=== PATIENT | male | born 1960 | race Caucasian/White ===

== ENCOUNTER 2017-11-20 15:14 | Emergency (ER) | payer MEDICAID, SELFPAY ==
[2017-11-20 15:14] VITALS: BP 162/87; PULSE 103; RESP 14; TEMP 36.4; O2SAT 99; BMI 20.2
--- NOTE | 2017-11-20 15:40 | RAD_ITS ---
STUDY: X-RAY - LEFT HAND REASON FOR EXAM: Male, 57 years old. Pain at level of fourth and fifth metacarpals following an injury. TECHNIQUE: 3 view(s) of the hand. COMPARISON: None. FINDINGS: Normal radiocarpal articulation. Normal distal radioulnar joint. Normal visualized carpal bones. Normal carpal articulations Normal carpometacarpal articulation of the thumb. Normal second through fifth carpometacarpal joints. Nondisplaced transverse fracture along the distal portion of the fifth metacarpal with mild dorsal angulation suggesting a boxer type fracture. Normal metacarpophalangeal joint of the thumb. Normal interphalangeal joint of the thumb. Normal proximal and distal phalanges of the thumb. Normal metacarpophalangeal joints of the second through fifth fingers. Normal proximal and distal interphalangeal joints of the second through fifth fingers. Normal phalanges of the second through fifth fingers. Soft tissue swelling. RAD/Hand Min 3 Views IMPRESSION: Nondisplaced fracture along the distal portion of the fifth metacarpal with mild dorsal regulation and soft tissue swelling. This is suggestively boxer type fracture. Electronically Signed: Rd Hunt MD at 16:01 EDT Tel [phone], Service support ,
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
[2017-11-20] MEDS: HYDROcodone Bitartrate/Apap 5/325 Tablet PO (15:51)
--- NOTE | 2017-11-20 15:55 | ED.DEP ---
ED Disposition - Plan for ED Patient: Disposition: Home or Assisted Living Chief Complaint: Upper Extremity Injury Instructions: ED Fx Hand Closed Prescriptions: Hydrocodone/Acetaminophen [[place] 7.5-325 Tablet] 1 ea PO Q4H PRN PRN #14 tab PRN Reason: Pain Referrals: Dayanara Tesfaye DO [STAFF PHYSICIAN] - As soon as possible Additional Instructions: Ice and elevate left hand. Motrin and limited [place] for pain. Clinically this is either an acute fracture of the left small metacarpal or an old healed fracture. There is no old films available for comparison. We will treat as a fracture and please follow-up with orthopedic physician Dr. Tesfaye.
--- NOTE | 2017-11-20 15:59 | DCINST.ED_ITS ---
ED Disposition - Plan for ED Patient: Disposition: Home or Assisted Living Chief Complaint: Upper Extremity Injury Instructions: ED Fx Hand Closed Prescriptions: Hydrocodone/Acetaminophen [[facility] 7.5-325 Tablet] 1 ea PO Q4H PRN PRN #14 tab PRN Reason: Pain Referrals: Dayanara Tesfaye DO [STAFF PHYSICIAN] - As soon as possible Additional Instructions: Ice and elevate left hand. Motrin and limited [facility] for pain. Clinically this is either an acute fracture of the left small metacarpal or an old healed fracture. There is no old films available for comparison. We will treat as a fracture and please follow-up with orthopedic physician Dr. Tesfaye.
== END 2017-11-20 16:18 | disposition home or self-care (01) ==
PROVIDERS: Emergency Provider Emergency Medicine; Family Provider Internal Medicine; PCP Internal Medicine
DX: S62.307A Unspecified fracture of fifth metacarpal bone, left hand, initial encounter for closed fracture (principal); W23.0XXA Caught, crushed, jammed, or pinched between moving objects, initial encounter; Y93.E6 Activity, residential relocation; Y92.9 Unspecified place or not applicable; Y99.9 Unspecified external cause status; F41.9 Anxiety disorder, unspecified; F17.200 Nicotine dependence, unspecified, uncomplicated
CPT/HCPCS: 29125; 73130; 99283

== ENCOUNTER 2020-03-03 12:19 | Emergency (ER) | payer MEDICAID, SELFPAY ==
[2020-03-03] VITALS (8 sets, daily range): BP systolic 111–130; BP diastolic 59–79; PULSE 61–88; RESP 12–18; TEMP 36.8; O2SAT 94–99; BMI 20.2
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
--- NOTE | 2020-03-03 12:35 | EKG12_ITS ---
Test Reason : WEAKNESS Blood Pressure : / mmHG Vent. Rate : 077 BPM Atrial Rate : 077 BPM P-R Int : 170 ms QRS Dur : 148 ms QT Int : 438 ms P-R-T Axes : 079 069 044 degrees QTc Int : 495 ms Normal sinus rhythm Right bundle branch block Abnormal ECG Confirmed by ROMA ALBA, ZITA ([id number]), purchasing expeditor YRN BAHENA ([id number]) on 03/09/2020 8:48:03 AM Referred By: LUKE Confirmed By:ZITA BRANDON MD
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
[2020-03-03] MEDS: 0.9% Normal Saline 1,000 ML 1000 ML IV (12:43)
[2020-03-03] MEDS: Naloxone 2 MG/2 ML Syringe 1 MG IV (12:43)
[2020-03-03 12:44] LABS: Absolute Lymphocyte Count 4.89 X10^3/uL (0.83-4.51); Absolute Neutrophil Count 3.9 X10^3/uL (2.0-7.7); Basophil# 0.08 X10^3/uL; Basophil% 0.8 % (0-1); Eosinophil# 0.35 X10^3/uL; Eosinophils% 3.5 % (0-5); Hematocrit 40.3 % (40-54); Hemoglobin 13.6 g/dL (13.0-16.5); Lymphocyte # 4.89 X10^3/ul (4.0); Lymphocyte % 48.8 % (19-41); Mean Corp Hgb Conc 33.7 g/dL (32-36); Mean Corpuscular Hgb 33.3 pg (27.0-32.0); Mean Corpuscular Volume 98.8 fL (80-94); Mean Platelet Vol. 9.4 fl (6.2-12.0); Monocyte# 0.75 X10^3/uL; Monocyte% 7.5 % (0-10); NRBC Flagged by Analyzer 0 % (0-5); Neutrophil # 3.92 X10^3/uL (2.7-7.7); Neutrophil % 39.1 % (47-70); Platelet Count 354 K/mm3 (150-450); RBC Distribution Width CV 13.1 % (11.6-14.6); Red Blood Count 4.08 M/mm3 (4.6-6.2)
--- NOTE | 2020-03-03 12:45 | RAD_ITS ---
STUDY: X-RAY CHEST REASON FOR EXAM: Male, 60 years old. Pt. Unresponsive, was brought in for general weakness and altered mental status TECHNIQUE: Single AP portable view of the chest. COMPARISON: Comparison is made with prior study dated 01/06/2017. FINDINGS: EKG electrodes are seen. Stable faint increased density in the left lung apex. There is no demonstrated pleural abnormality. Normal size heart. Normal mediastinum and teresa. Normal visualized pulmonary arteries. Normal visualized aortic arch and descending thoracic aorta. Normal visualized thoracic spine. Normal visualized ribs, clavicles, and shoulders. There is no demonstrated abnormality of the visualized soft tissue structures of the upper abdomen. RAD/Chest 1 View (Portable) IMPRESSION: Hyperinflation. Stable examination. Electronically Signed: Rd Hunt, at 13:20 EDT , Service support ,
[2020-03-03 13:00] LABS: ALB/GLOB Ratio 0.9 RATIO (0.9-2.4); AST(SGOT) 48 U/L (15-37); Alanine Aminotransfer ALT/SGPT 41 U/L (16-61); Albumin, Serum 3.7 g/dL (3.2-5.0); Alkaline Phosphatase 128 U/L (45-117); Anion Gap 5 (5-15); BUN 7 mg/dL (7-18); BUN/Creat Ratio 10.6 RATIO (10-20); Chloride 109 mmol/L (98-107); Creatinine, Serum 0.66 mg/dL (0.70-1.30); EST Glomerular Filtration Rate 132 mL/min (>60); Est Glom Filt Rate - Afr Amer 159 mL/min (>60); Estimated Creatinine Clearance 113.54 ml/min; Glucose 117 mg/dL (74-106); Potassium 3.3 mmol/L (3.5-5.1); Protein, Total 7.7 g/dL (6.4-8.2); Sodium Level 140 mmol/L (136-145)
[2020-03-03 14:53] LABS: Bacteria 0 SEEN /hpf (None Seen); Mucous, Urine 0 SEEN /hpf (<or=2+); Red Blood Cells-Urine 0 SEEN /hpf (0-5); Squamous Epithelial Cells - UA 0 SEEN /hpf (0-5); White Blood Cells 0 SEEN /hpf (0-5)
[2020-03-03 14:58] LABS: Color, Urine Yellow (Yellow); Glucose, Dipstick Normal (Normal); Ketone-Dipstick Negative (Negative); Leukocyte Esterase-Dipstick Negative /ul (Negative); Nitrite-Dipstick Negative (Negative); Occult Blood-Urine Negative /ul (Negative); Protein-Dipstick Negative (Negative); Urine Bilirubin Dipstick Negative (Negative); Urine Clarity Clear (Clear); Urine Urobilinogen Normal (Normal)
[2020-03-03 15:14] LABS: Amphetamine Urine VISTA POSITIVE (<1000 ng/mL); Barbiturate Urine VISTA NEGATIVE (< 200 ng/mL); Benzodiazepine Urine VISTA NEGATIVE (< 200 ng/mL); Cocaine Urine VISTA NEGATIVE (< 300 ng/mL); Ecstacy Urine VISTA NEGATIVE (< 500 ng/mL); Methadone Urine VISTA NEGATIVE (< 300 ng/mL); PCP Urine VISTA NEGATIVE (< 25 ng/mL); THC Urine VISTA NEGATIVE (< 50 ng/mL); Vista UDS pH Range 6
== END 2020-03-03 21:09 | disposition home or self-care (01) ==
PROVIDERS: Emergency Provider Student in an Organized Health Care Education/Training Program; PCP Internal Medicine
DX: F10.129 Alcohol abuse with intoxication, unspecified (principal); F15.10 Other stimulant abuse, uncomplicated; F17.200 Nicotine dependence, unspecified, uncomplicated
CPT/HCPCS: 71045; 80053; 80307; 80320; 81001; 85025; 93005; 96361; 96365; 96368; 96375; 99285; J7030; A4216; G0480; J3490

== ENCOUNTER 2020-03-20 16:26 | Emergency (ER) | payer MEDICAID, SELFPAY ==
[2020-03-03 12:23] VITALS: BMI 20.2
[2020-03-20 16:27] VITALS: BP 135/81; PULSE 107; RESP 18; TEMP 36.6; O2SAT 96; BMI 19.6
[2020-03-20] MEDS: HYDROcodone Bitartrate/Apap 5/325 Tablet PO (17:07)
--- NOTE | 2020-03-20 17:09 | ED.RN ---
pt c/o of lt great toe pain, i think my toe nail is too long. Denies loc when he hit his head.
--- NOTE | 2020-03-20 17:15 | RAD_ITS ---
STUDY: X-RAY - LEFT SHOULDER REASON FOR EXAM: Male, 60 years old. SHOULDER INJURY TECHNIQUE: 2 view(s) of the shoulder. COMPARISON: None. FINDINGS: Normal glenohumeral articulation. Normal acromioclavicular joint. Normal acromion. Normal humeral head and visualized proximal humerus. The soft tissue structures are unremarkable. Normal visualized pulmonary apex. RAD/Shoulder min 2 Views IMPRESSION: Normal x-ray examination of the shoulder. Electronically Signed: Enoch Britton DO at 17:34 EDT Tel [phone], Service support ,
[2020-03-20 18:27] VITALS: RESP 14
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
--- NOTE | 2020-03-20 18:31 | ED.DEP ---
ED Disposition - Plan for ED Patient: Instructions: ED Shoulder Sprain Prescriptions: Clotrimazole [Clotrimazole AF] 1 applicatio TP BID 30 Days #30 g Prescription Printed Naproxen [Naprosyn] 500 mg PO BID PRN #20 tab Prescription Printed Referrals: Rubia Coffey MD [Primary Care Provider] -
--- NOTE | 2020-03-20 18:55 | ED.RN ---
PT LT PRIOR TO SLING, PRESCRIPTIONS, AND DC PAPERS.
== END 2020-03-20 18:55 | disposition home or self-care (01) ==
PROVIDERS: Emergency Provider Emergency Medicine; PCP Internal Medicine
DX: S09.90XA Unspecified injury of head, initial encounter (principal); S43.402A Unspecified sprain of left shoulder joint, initial encounter; S90.32XA Contusion of left foot, initial encounter; B35.6 Tinea cruris; Z72.0 Tobacco use; V18.0XXA Pedal cycle driver injured in noncollision transport accident in nontraffic accident, initial encounter; Y93.55 Activity, bike riding; Y92.89 Other specified places as the place of occurrence of the external cause; Y99.8 Other external cause status
CPT/HCPCS: 73030; 99282

== ENCOUNTER 2020-03-31 14:12 | Emergency (ER) | payer MEDICAID, SELFPAY ==
[2020-03-31 14:12] VITALS: BP 125/77; PULSE 88; RESP 18; TEMP 36.4; O2SAT 96; BMI 18.8
--- NOTE | 2020-03-31 14:28 | RAD_ITS ---
STUDY: X-RAY - LEFT SHOULDER REASON FOR EXAM: Male, 60 years old. Fall, left shoulder pain TECHNIQUE: 4 view(s) of the shoulder. COMPARISON: None. FINDINGS: There is mild degenerative arthrosis of the glenohumeral articulation. Normal acromioclavicular joint. Normal acromion. Normal humeral head and visualized proximal humerus. The soft tissue structures are unremarkable. Normal visualized pulmonary apex. RAD/Shoulder min 2 Views IMPRESSION: Mild degree of arthrosis of the left shoulder. Electronically Signed: Rd Hunt, at 15:23 EDT , Service support ,
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
--- NOTE | 2020-03-31 14:45 | RAD_ITS ---
STUDY: X-RAY - PELVIS AND RIGHT HIP REASON FOR EXAM: Male, 60 years old. Fall, right hip pain TECHNIQUE: 3 views of the pelvis and hip. COMPARISON: None. FINDINGS: There is a non-specific bowel gas pattern. Normal visualized soft tissue structures. Normal bilateral iliac wings, sacroiliac joints and visualized sacrum. Normal bilateral superior and inferior pubic rami. Normal pubic symphysis. Normal bilateral ischial tuberosities. Normal visualized femoral head. Normal acetabulum. Normal hip joint. RAD/HIP, UNI W/ Pelvis 2-3 Views IMPRESSION: Normal x-ray examination of the pelvis and hip. Electronically Signed: Rd Hunt, at 15:23 EDT , Service support ,
[2020-03-31 16:14] VITALS: RESP 14
== END 2020-03-31 16:16 | disposition home or self-care (01) ==
PROVIDERS: Emergency Provider Emergency Medicine; PCP Internal Medicine
DX: S70.01XA Contusion of right hip, initial encounter (principal); S40.012A Contusion of left shoulder, initial encounter; Z72.0 Tobacco use; W10.9XXA Fall (on) (from) unspecified stairs and steps, initial encounter; Y93.01 Activity, walking, marching and hiking; Y92.009 Unspecified place in unspecified non-institutional (private) residence as the place of occurrence of the external cause; Y99.8 Other external cause status
CPT/HCPCS: 73030; 73502; 99284

== ENCOUNTER 2020-12-02 21:04 | Emergency (ER) | payer MEDICAID, SELFPAY ==
[2020-12-02 21:05] VITALS: BP 122/81; PULSE 88; PULSE 92; RESP 11; TEMP 35.6; O2SAT 98; BMI 21.0
--- NOTE | 2020-12-02 21:10 | CT_ITS ---
STUDY: CT BRAIN WITHOUT CONTRAST REASON FOR EXAM: Male, 60 years old. confusion RADIATION DOSAGE (If Supplied By Facility): CTDIvol = ( 44.99 ) mGy, DLP = ( 829.85 ) mGycm TECHNIQUE: Transaxial CT imaging of the brain was performed without administration of intravenous contrast material. Individualized dose optimization techniques were used for this CT. COMPARISON: Head CT exam of 01/27/2016 FINDINGS: Normal soft tissue structures. Normal calvarium. Normal size ventricles and extra-axial spaces for the patient''s age. Normal white matter tracts of the cerebral hemispheres. Normal basal ganglia and thalami. Normal brainstem. Normal cerebellum. There is no intracranial hemorrhage. There are no findings of an acute ischemic infarction. Mucosal thickening in the inferior frontal sinuses. Mucosal thickening in bilateral ethmoid sinuses. Minimal to mild areas of mucosal thickening in the maxillary sinuses. CT/Brain/Head without Contrast IMPRESSION: Normal unenhanced CT scan of the brain. Incidental sinus findings as stated above. Electronically Signed: Alma Becker MD at 22:01 EDT , Service support ,
--- NOTE | 2020-12-02 21:11 | EKG12_ITS ---
Test Reason : OVERDOSE Blood Pressure : / mmHG Vent. Rate : 089 BPM Atrial Rate : 089 BPM P-R Int : 178 ms QRS Dur : 144 ms QT Int : 454 ms P-R-T Axes : 072 060 029 degrees QTc Int : 552 ms Normal sinus rhythm Right bundle branch block Abnormal ECG Confirmed by RAN ALBA, VEENA ([id number]), editor in chief YRN BAHENA ([id number]) on 12/06/2020 12:26:23 PM Referred By: DONALD Confirmed By:VEENA TONG MD
[2020-12-02 21:25] LABS: Absolute Lymphocyte Count 4.43 X10^3/uL (0.83-4.51); Absolute Neutrophil Count 4.1 X10^3/uL (2.0-7.7); Basophil% 1.1 % (0-1); Eosinophils% 3.2 % (0-5); Hematocrit 43.3 % (40-54); Hemoglobin 13.6 g/dL (13.0-16.5); Lymphocyte # 4.43 X10^3/ul (0.83-4.51); Lymphocyte % 46.6 % (19-41); Mean Corp Hgb Conc 31.4 g/dL (32-36); Mean Corpuscular Hgb 32.3 pg (27.0-32.0); Mean Corpuscular Volume 102.9 fL (80-94); Mean Platelet Vol. 9.3 fl (6.2-12.0); Monocyte# 0.56 X10^3/uL; Monocyte% 5.9 % (0-10); NRBC Flagged by Analyzer 0 % (0-5); Neutrophil # 4.09 X10^3/uL (2.7-7.7); Neutrophil % 42.9 % (47-70); Platelet Count 436 K/mm3 (150-450); RBC Distribution Width CV 13.6 % (11.6-14.6); RBC Distribution Width SD 51.7 fl (35.1-43.9); Red Blood Count 4.21 M/mm3 (4.6-6.2); White Blood Count 9.5 K/mm3 (4.4-11.0)
--- NOTE | 2020-12-02 21:31 | EX.ED.DYSGE1 ---
HPI <Dr. Bin Traore MD - Last Filed: 12/02/20 23:23> History of Present Illness Chief Complaint: Overdose Informant: EMS and police/social human services assistants Limited: intoxicated Onset/Context/Timing Onset: Today Context: Sudden Onset Timing: Continuous Current Severity: Moderate Maximum Severity: Severe Narrative Narrative: The patient is a 60-year-old male no significant medical history the presents to the emergency department due to unresponsiveness. The home registered occupational therapist had called as the patient was there. On squad arrival, the patient was apneic with pinpoint pupils. He had very diminished respirations. IV was established. The patient was given a total of 12 mg of Narcan. He started to breathe on his own. He will not state if he took anything. The patient does have history of prior alcohol abuse and depression. There is no evidence of trauma. PFSH <Dr. Bin Traore MD - Last Filed: 12/02/20 23:23> [facility] Home Medications clotrimazole 1 applicatio TP BID 30 Days #30 g 03/20/20 [Rx Last Taken Unknown] naproxen 500 mg PO BID PRN #20 tab 03/20/20 [Rx Last Taken Unknown] Allergy/AdvReac Type Severity Reaction Status Date / Time Penicillins Allergy Angioedema Verified 12/03/20 04:10 Social History Smoking Status: Current every day smoker alcohol intake: current ROS <Dr. Bin Traore MD - Last Filed: 12/02/20 23:23> ROS ED Review of Systems ROS Unobtainable: due to encephalopathy EXAM <Dr. Bin Traore MD - Last Filed: 12/02/20 23:23> Physical Exam Const Vital Signs: 12/02/20 21:05 12/02/20 21:40 12/02/20 22:05 Temperature 96.1 F L Temperature Source Temporal Pulse Rate 92 93 Respiratory Rate 11 L 14 Respiratory Effort Normal Non-Labored Respiratory Pattern Normal Blood Pressure 122/81 H 130/74 H Blood Pressure Mean 94 92 Pulse Ox 98 100 Oxygen Delivery Method Room Air Room Air 12/02/20 23:00 12/03/20 00:00 12/03/20 01:10 Temperature Temperature Source Pulse Rate 88 93 89 Respiratory Rate 10 L 13 14 Respiratory Effort Respiratory Pattern Blood Pressure 125/75 H 121/63 H 137/66 H Blood Pressure Mean 91 82 89 Pulse Ox 96 96 95 Oxygen Delivery Method Room Air Room Air 12/03/20 02:08 12/03/20 03:03 12/03/20 04:09 Temperature Temperature Source Pulse Rate 77 81 80 Respiratory Rate 14 12 14 Respiratory Effort Respiratory Pattern Blood Pressure 140/67 H 125/73 H 141/79 H Blood Pressure Mean 91 90 99 Pulse Ox 96 Oxygen Delivery Method Room Air 12/03/20 05:52 Temperature 16 F L Temperature Source Pulse Rate Respiratory Rate 94 H Respiratory Effort Respiratory Pattern Blood Pressure 153/67 H Blood Pressure Mean Pulse Ox 96 Oxygen Delivery Method Positive unkempt General Appearance ED: unkempt and diaphoretic HEENT Negative for trauma or tenderness Eyes PERRL and EOMs intact bilaterally Neck no lymphadenopathy and supple Chest Wall inspection of chest normal and palpation of chest normal Resp normal respiratory effort and clear to auscultation bilaterally Cardio regular rate, regular rhythm, S1 normal heart sound and no murmurs GI normal to inspection, nondistended, normoactive bowel sounds, non-tender and non-distended Palpation: soft Back/Spine no CVA tenderness Neuro CN's II-XII intact bilaterally Sensorium / Orientation: lethargic Psych Appearance: unkempt Mood & Affect: depressed Skin no rashes or lesions noted <Dr. Naveen Joshua MD - Last Filed: 12/03/20 06:23> Physical Exam Const Vital Signs: 12/02/20 21:05 12/02/20 21:40 12/02/20 22:05 Temperature 96.1 F L Temperature Source Temporal Pulse Rate 92 93 Respiratory Rate 11 L 14 Respiratory Effort Normal Non-Labored Respiratory Pattern Normal Blood Pressure 122/81 H 130/74 H Blood Pressure Mean 94 92 Pulse Ox 98 100 Oxygen Delivery Method Room Air Room Air 12/02/20 23:00 12/03/20 00:00 12/03/20 01:10 Temperature Temperature Source Pulse Rate 88 93 89 Respiratory Rate 10 L 13 14 Respiratory Effort Respiratory Pattern Blood Pressure 125/75 H 121/63 H 137/66 H Blood Pressure Mean 91 82 89 Pulse Ox 96 96 95 Oxygen Delivery Method Room Air Room Air 12/03/20 02:08 12/03/20 03:03 12/03/20 04:09 Temperature Temperature Source Pulse Rate 77 81 80 Respiratory Rate 14 12 14 Respiratory Effort Respiratory Pattern Blood Pressure 140/67 H 125/73 H 141/79 H Blood Pressure Mean 91 90 99 Pulse Ox 96 Oxygen Delivery Method Room Air 12/03/20 05:52 Temperature 16 F L Temperature Source Pulse Rate Respiratory Rate 94 H Respiratory Effort Respiratory Pattern Blood Pressure 153/67 H Blood Pressure Mean Pulse Ox 96 Oxygen Delivery Method [facility] <Dr. Bin Traore MD - Last Filed: 12/02/20 23:23> [facility] Narrative Medical decision making narrative: Patient presents after overdose. He had already received Narcan prehospital he. He was not hypoxic or tachypneic. Metabolic work-up was pursued. Noncontrast head CT was negative for acute process. Screening labs are also unremarkable. Patient's chest x-ray does demonstrate questionable nodule which she has a history of. Patient is also intoxicated. He is now more awake and alert. He did admit to snorting something tonight. At this point, he denies being suicidal or homicidal. The plan will be to allow the patient to be more sober and will be reevaluated. I do feel that he will likely be able to be discharged. Impression 1. Alcohol intoxication 2. Opiate overdose Lab Data Attestation: I reviewed the patient's lab results. Labs: Laboratory Results - last 24 hr 12/02/20 12/02/20 12/02/20 21:15 21:15 21:15 WBC 9.5 RBC 4.21 L Hgb 13.6 Hct 43.3 MCV 102.9 H MCH 32.3 H MCHC 31.4 L RDW Std Deviation 51.7 H RDW Coeff of Kunal 13.6 Plt Count 436 MPV 9.3 Immature Gran % (Auto) 0.300 Neut % (Auto) 42.9 L Lymph % (Auto) 46.6 H [place] % (Auto) 5.9 Eos % (Auto) 3.2 Baso % (Auto) 1.1 H Absolute Neuts (auto) 4.1 Absolute Lymphs (auto) 4.43 Nucleated RBC % 0 Sodium 139 Potassium 4.0 Chloride 105 Carbon Dioxide 26.0 Anion Gap 8 BUN 10 Creatinine 1.07 Estim Creat Clear Calc 72.80 Est GFR (MDRD) Af Amer 91 Est GFR (MDRD) Non-Af 75 BUN/Creatinine Ratio 9.3 L Glucose 200 H Calcium 8.4 L Total Bilirubin 0.40 AST 43 H ALT 35 Alkaline Phosphatase 131 H Total Protein 8.3 H Albumin 3.8 Globulin 4.5 H Albumin/Globulin Ratio 0.8 L Urine Color Urine Clarity Urine pH Ur Specific [place] Urine Protein Urine Glucose (UA) Urine Ketones Urine Occult Blood Urine Nitrite Urine Bilirubin Urine Urobilinogen Ur Leukocyte Esterase Urine RBC Urine WBC Ur Squamous Epith Cells Urine Bacteria Urine Mucus Urine Opiates Screen Urine Methadone Screen Ur Barbiturates Screen Ur Phencyclidine Scrn Ur Amphetamines Screen U Methamphetamin-MDMA U Benzodiazepines Scrn Urine Cocaine Screen U Cannabinoids Screen Ur Drug Screen Comment Ethyl Alcohol 215.0 12/02/20 12/02/20 23:20 23:20 WBC RBC Hgb Hct MCV MCH MCHC RDW Std Deviation RDW Coeff of Kunal Plt Count MPV Immature Gran % (Auto) Neut % (Auto) Lymph % (Auto) [place] % (Auto) Eos % (Auto) Baso % (Auto) Absolute Neuts (auto) Absolute Lymphs (auto) Nucleated RBC % Sodium Potassium Chloride Carbon Dioxide Anion Gap BUN Creatinine Estim Creat Clear Calc Est GFR (MDRD) Af Amer Est GFR (MDRD) Non-Af BUN/Creatinine Ratio Glucose Calcium Total Bilirubin AST ALT Alkaline Phosphatase Total Protein Albumin Globulin Albumin/Globulin Ratio Urine Color Yellow Urine Clarity Clear Urine pH 6.5 Ur Specific [place] 1.015 Urine Protein 15 H Urine Glucose (UA) Normal Urine Ketones Negative Urine Occult Blood Negative Urine Nitrite Negative Urine Bilirubin Negative Urine Urobilinogen Normal Ur Leukocyte Esterase Negative Urine RBC 0 SEEN Urine WBC 0 SEEN Ur Squamous Epith Cells 0 SEEN Urine Bacteria 0 SEEN Urine Mucus 0 SEEN Urine Opiates Screen POSITIVE H Urine Methadone Screen NEGATIVE Ur Barbiturates Screen NEGATIVE Ur Phencyclidine Scrn NEGATIVE Ur Amphetamines Screen POSITIVE H U Methamphetamin-MDMA NEGATIVE U Benzodiazepines Scrn NEGATIVE Urine Cocaine Screen NEGATIVE U Cannabinoids Screen NEGATIVE Ur Drug Screen Comment Ethyl Alcohol Radiography Diagnostic Testing: Radiology Impression Brain CT 12/02/20 21:10 IMPRESSION: Normal unenhanced CT scan of the brain. Incidental sinus findings as stated above. Electronically Signed: Alma Becker MD at 22:01 EDT , Service support , Chest X-Ray 12/02/20 21:40 IMPRESSION: No acute cardiopulmonary findings or changes. Persistent rounded opacity in the left lung apex which is more obvious on the current exam due to the nonstandard projection/rotation towards the right. There may be no substantial changes. Consider nonemergent chest CT for comparison to a prior chest CT of 05/01/2013 when available. A similar lesion is described on this exam which is not currently available. Electronically Signed: Alma Becker MD at 22:07 EDT , Service support , <Dr. Naveen Joshua MD - Last Filed: 12/03/20 06:23> [facility] Narrative Medical decision making narrative: Patient was turned over to me from the afternoon physician from yesterday. Patient's been resting comfortably in emergency department overnight. Labs were basically unremarkable except alcohol level was 215 consistent with acute alcohol intoxication and it was also felt that the patient may have unintentionally overdosed on heroin. Patient is now awake and alert and has been for the last several hours. We believe he is currently homeless so we allowed him to rest in the emergency department overnight and we supervised and observed his care. He will be discharged this morning. Currently he is doing well at 6:10 in the morning. Lab Data Attestation: I reviewed the patient's lab results. Labs: Laboratory Results - last 24 hr 12/02/20 12/02/20 12/02/20 21:15 21:15 21:15 WBC 9.5 RBC 4.21 L Hgb 13.6 Hct 43.3 MCV 102.9 H MCH 32.3 H MCHC 31.4 L RDW Std Deviation 51.7 H RDW Coeff of Kunal 13.6 Plt Count 436 MPV 9.3 Immature Gran % (Auto) 0.300 Neut % (Auto) 42.9 L Lymph % (Auto) 46.6 H [place] % (Auto) 5.9 Eos % (Auto) 3.2 Baso % (Auto) 1.1 H Absolute Neuts (auto) 4.1 Absolute Lymphs (auto) 4.43 Nucleated RBC % 0 Sodium 139 Potassium 4.0 Chloride 105 Carbon Dioxide 26.0 Anion Gap 8 BUN 10 Creatinine 1.07 Estim Creat Clear Calc 72.80 Est GFR (MDRD) Af Amer 91 Est GFR (MDRD) Non-Af 75 BUN/Creatinine Ratio 9.3 L Glucose 200 H Calcium 8.4 L Total Bilirubin 0.40 AST 43 H ALT 35 Alkaline Phosphatase 131 H Total Protein 8.3 H Albumin 3.8 Globulin 4.5 H Albumin/Globulin Ratio 0.8 L Urine Color Urine Clarity Urine pH Ur Specific [place] Urine Protein Urine Glucose (UA) Urine Ketones Urine Occult Blood Urine Nitrite Urine Bilirubin Urine Urobilinogen Ur Leukocyte Esterase Urine RBC Urine WBC Ur Squamous Epith Cells Urine Bacteria Urine Mucus Urine Opiates Screen Urine Methadone Screen Ur Barbiturates Screen Ur Phencyclidine Scrn Ur Amphetamines Screen U Methamphetamin-MDMA U Benzodiazepines Scrn Urine Cocaine Screen U Cannabinoids Screen Ur Drug Screen Comment Ethyl Alcohol 215.0 12/02/20 12/02/20 23:20 23:20 WBC RBC Hgb Hct MCV MCH MCHC RDW Std Deviation RDW Coeff of Kunal Plt Count MPV Immature Gran % (Auto) Neut % (Auto) Lymph % (Auto) [place] % (Auto) Eos % (Auto) Baso % (Auto) Absolute Neuts (auto) Absolute Lymphs (auto) Nucleated RBC % Sodium Potassium Chloride Carbon Dioxide Anion Gap BUN Creatinine Estim Creat Clear Calc Est GFR (MDRD) Af Amer Est GFR (MDRD) Non-Af BUN/Creatinine Ratio Glucose Calcium Total Bilirubin AST ALT Alkaline Phosphatase Total Protein Albumin Globulin Albumin/Globulin Ratio Urine Color Yellow Urine Clarity Clear Urine pH 6.5 Ur Specific [place] 1.015 Urine Protein 15 H Urine Glucose (UA) Normal Urine Ketones Negative Urine Occult Blood Negative Urine Nitrite Negative Urine Bilirubin Negative Urine Urobilinogen Normal Ur Leukocyte Esterase Negative Urine RBC 0 SEEN Urine WBC 0 SEEN Ur Squamous Epith Cells 0 SEEN Urine Bacteria 0 SEEN Urine Mucus 0 SEEN Urine Opiates Screen POSITIVE H Urine Methadone Screen NEGATIVE Ur Barbiturates Screen NEGATIVE Ur Phencyclidine Scrn NEGATIVE Ur Amphetamines Screen POSITIVE H U Methamphetamin-MDMA NEGATIVE U Benzodiazepines Scrn NEGATIVE Urine Cocaine Screen NEGATIVE U Cannabinoids Screen NEGATIVE Ur Drug Screen Comment Ethyl Alcohol Radiography Diagnostic Testing: Radiology Impression Brain CT 12/02/20 21:10 IMPRESSION: Normal unenhanced CT scan of the brain. Incidental sinus findings as stated above. Electronically Signed: Alma Becker MD at 22:01 EDT , Service support , Chest X-Ray 12/02/20 21:40 IMPRESSION: No acute cardiopulmonary findings or changes. Persistent rounded opacity in the left lung apex which is more obvious on the current exam due to the nonstandard projection/rotation towards the right. There may be no substantial changes. Consider nonemergent chest CT for comparison to a prior chest CT of 05/01/2013 when available. A similar lesion is described on this exam which is not currently available. Electronically Signed: Alma Becker MD at 22:07 EDT , Service support , Discharge Plan Triage Chief Complaint: Overdose ED Provider: Naveen Joshua Dx/Rx/DC Orders Instructions: ED Overdose, Opiate Prescriptions: No Action naproxen 500 MG tablet 500 mg PO BID PRN Qty: 20 RF: 0 clotrimazole 30 GM cream 1 applicatio TP BID 30 Days Qty: 30 RF: 2 Primary Care Provider: Rubia Coffey Referrals: Rubia Coffey MD [Primary Care Provider] -
--- NOTE | 2020-12-02 21:40 | RAD_ITS ---
STUDY: X-RAY CHEST REASON FOR EXAM: Male, 60 years old. sob TECHNIQUE: 1 view COMPARISON: Prior chest radiograph 03/03/2020, 01/06/2017 and 01/27/2016 FINDINGS: The lung elder are expanded without new consolidation, major atelectasis or pleural effusion. There continues to be a roundish opacity in the left upper lobe that is more obvious on the current exam compared to prior exams which may be primarily due to the projection as he is rotated towards the right and the lesion is now visible not overlapped by the clavicle as on most of the prior exams. Normal size heart. Normal mediastinum and teresa. Normal visualized pulmonary arteries. Mild elongation of the thoracic aorta. Normal visualized thoracic spine. Normal visualized ribs, clavicles, and shoulders. There is no demonstrated abnormality of the visualized soft tissue structures of the upper abdomen. RAD/Chest 1 View (Portable) IMPRESSION: No acute cardiopulmonary findings or changes. Persistent rounded opacity in the left lung apex which is more obvious on the current exam due to the nonstandard projection/rotation towards the right. There may be no substantial changes. Consider nonemergent chest CT for comparison to a prior chest CT of 05/01/2013 when available. A similar lesion is described on this exam which is not currently available. Electronically Signed: Alma Becker MD at 22:07 EDT , Service support ,
[2020-12-02 21:43] LABS: ALB/GLOB Ratio 0.8 RATIO (0.9-2.4); AST(SGOT) 43 U/L (15-37); Alanine Aminotransfer ALT/SGPT 35 U/L (16-61); Albumin, Serum 3.8 g/dL (3.2-5.0); Alkaline Phosphatase 131 U/L (45-117); Anion Gap 8 (5-15); BUN 10 mg/dL (7-18); BUN/Creat Ratio 9.3 RATIO (10-20); Calcium,Total 8.4 mg/dL (8.5-10.1); Chloride 105 mmol/L (98-107); Creatinine, Serum 1.07 mg/dL (0.70-1.30); EST Glomerular Filtration Rate 75 mL/min (>60); Est Glom Filt Rate - Afr Amer 91 mL/min (>60); Globulin 4.5 g/dL (2.2-4.2); Glucose 200 mg/dL (74-106); Protein, Total 8.3 g/dL (6.4-8.2); Sodium Level 139 mmol/L (136-145)
[2020-12-02 22:05] VITALS: BP 130/74; PULSE 93; RESP 14; O2SAT 100
[2020-12-02 23:00] VITALS: BP 125/75; PULSE 88; RESP 10; O2SAT 96
[2020-12-02 23:43] LABS: Bacteria 0 SEEN /hpf (None Seen); Mucous, Urine 0 SEEN /hpf (<or=2+); Red Blood Cells-Urine 0 SEEN /hpf (0-5); Squamous Epithelial Cells - UA 0 SEEN /hpf (0-5); White Blood Cells 0 SEEN /hpf (0-5)
[2020-12-02 23:44] LABS: Color, Urine Yellow (Yellow); Glucose, Dipstick Normal (Normal); Ketone-Dipstick Negative (Negative); Leukocyte Esterase-Dipstick Negative /ul (Negative); Nitrite-Dipstick Negative (Negative); Occult Blood-Urine Negative /ul (Negative); Protein-Dipstick 15 mg/dl (Negative); Specific Gravity, Urine 1.015 (1.002-1.030); Urine Bilirubin Dipstick Negative (Negative); Urine Clarity Clear (Clear); Urine Urobilinogen Normal (Normal); Urine pH 6.5 (5.0 - 8.0)
[2020-12-03] VITALS: BP 121/63; PULSE 93; RESP 13; O2SAT 96
[2020-12-03 00:06] LABS: Amphetamine Urine VISTA POSITIVE (<1000 ng/mL); Barbiturate Urine VISTA NEGATIVE (< 200 ng/mL); Benzodiazepine Urine VISTA NEGATIVE (< 200 ng/mL); Cocaine Urine VISTA NEGATIVE (< 300 ng/mL); Ecstacy Urine VISTA NEGATIVE (< 500 ng/mL); Methadone Urine VISTA NEGATIVE (< 300 ng/mL); PCP Urine VISTA NEGATIVE (< 25 ng/mL); THC Urine VISTA NEGATIVE (< 50 ng/mL); Vista UDS pH Range 6
[2020-12-03 01:10] VITALS: BP 137/66; PULSE 89; RESP 14; O2SAT 95
[2020-12-03 02:08] VITALS: BP 140/67; PULSE 77; RESP 14; O2SAT 96
[2020-12-03 03:03] VITALS: BP 125/73; PULSE 81; RESP 12
[2020-12-03 04:09] VITALS: BP 141/79; PULSE 80; RESP 14
--- NOTE | 2020-12-03 04:54 | ED.RN ---
PT IS AWAKE, PT MADE AWARE IF HE CAN FIND A RIDE HOME HE CAN BE DISCHARGED.PT STATED HE WASS HOMELESS AND HAD NO ONE TO CALL.MD MADE AWARE.PT IS STAYING UNTIL DAYLIGHT.PT FINE WITH THAT.GAVE PT A SANDWHICH AND WATER.
[2020-12-03 05:52] VITALS: BP 153/67; RESP 94; TEMP -8.8; TEMP 16; O2SAT 96
== END 2020-12-03 06:25 | disposition home or self-care (01) ==
PROVIDERS: Emergency Medicine; Emergency Provider Emergency Medicine; PCP Internal Medicine
DX: T40.601A Poisoning by unspecified narcotics, accidental (unintentional), initial encounter (principal); F17.200 Nicotine dependence, unspecified, uncomplicated; F10.129 Alcohol abuse with intoxication, unspecified; Y90.7 Blood alcohol level of 200-239 mg/100 ml
CPT/HCPCS: 70450; 71045; 80053; 80307; 81001; 82077; 85025; 93005; 96360; 96361; 99285; A4216

== ENCOUNTER 2021-02-12 09:15 | Emergency (ER) | payer MEDICAID, SELFPAY ==
[2021-02-12 09:17] VITALS: BP 134/100; PULSE 98; RESP 14; TEMP 36.3; O2SAT 99; BMI 19.8
--- NOTE | 2021-02-12 10:07 | VDLE_ITS ---
Reason For Study: Pain Procedure LEFT This is a venous duplex using B-mode, color GSV is normal. flow and spectral Doppler. CFV is compressible, spontaneous, phasic, Exam performed portable in ED. competent, and demonstrates normal A preliminary report was called and/or faxed augmentation. to [facility]. FV is compressible, spontaneous, phasic, competent and demonstrates normal augmentation. POP V is compressible, spontaneous, phasic, competent and demonstrates normal augmentation. T/P Trunk is compressible. PTV is compressible. LT PerV is compressible. VL/Venous Duplex US, Unilateral Interpretation Summary There is no evidence of left lower extremity deep vein thrombosis. Left great s aphenous vein appears patent and compressible segmentally. Ordering Physician: Emiliano Quezada Referring Physician: Rubia Coffey Performed By: Mere Treadwell RVT
--- NOTE | 2021-02-12 10:09 | EDS_ITS ---
HPI History of Present Illness Chief Complaint: Other, Pain/Inj Narrative Narrative: 61-year-old male presenting with leg pain which he states is his entire leg starting in his gluteal region. It is circumferential as well. Patient states he was not doing anything except sweeping when it started. Patient denies any trauma. He states he has no medical problems. [facility] Medical History Alcoholism Depression Home Medications naproxen [Naprosyn] 500 mg PO BID PRN #30 tab 02/12/21 [Rx Last Taken Unknown] Allergy/AdvReac Type Severity Reaction Status Date / Time Penicillins Allergy Angioedema Verified 02/12/21 09:21 Surgical History H/O foot surgery Social History Smoking Status: Current every day smoker tobacco type: cigarettes alcohol intake: current ROS ROS ED Constitutional Constitutional ED: Denies chills, fever(s) or sweats Eyes Eyes: Denies blurry vision or change in vision ENT ENT ED: Denies rhinorrhea or sore throat Cardiovascular Cardiovascular: Denies chest pain or palpitations Respiratory/Chest Respiratory/Chest: Denies cough or dyspnea Gastrointestinal Gastrointestinal: Denies abdominal pain, nausea or vomiting Genitourinary Genitourinary ED: Denies dysuria or hematuria Musculoskeletal Musculoskeletal: Reports myalgias and other Details: Circumferential pain of the entire leg starting at the gluteal region Integumentary Denies abscess or rash Neurologic Neurologic: Denies headache(s) or paresthesias Psychiatric Psychiatric: Denies anxiety or depression EXAM Physical Exam Const Vital Signs: 02/12/21 09:17 02/12/21 11:37 Temperature 97.4 F L Temperature Source Temporal Pulse Rate 98 82 Respiratory Rate 14 16 Blood Pressure 134/100 H 143/83 H Blood Pressure Mean 111 Pulse Ox 99 100 Oxygen Delivery Method Room Air Positive cachectic and unkempt General Appearance ED: unkempt, cachectic and NAD Nutritional Appearance: cachectic HEENT Reports moist mucous membranes normocephalic and atraumatic Eyes PERRL Resp normal respiratory effort and clear to auscultation bilaterally Cardio regular rate, regular rhythm and no murmurs Back/Spine no CVA tenderness General Back: Negative for swelling Cervical Spine: Negative for cervical spine tenderness Thoracic Spine / Upper Back: Negative for thoracic spinal tenderness Lumbar Spine / Lower Back: straight leg raise positive - left at 30 degrees; Negative for lumbar spinal tenderness Extremity Extremity Narrative: Tenderness to palpation in the left gluteal region. Although patient describes pain diffusely down his left leg with distraction as I am palpating he is not experiencing acute pain to this area of either the thigh or the calf. All the compartments of the entire leg are soft. Sensation is intact. Patient is moving the extremity without difficulty although on straight leg raise test he feels pain in the gluteal region. Patient has 2+ pedal pulses in the foot. He has brisk cap refill to all 5 toes. General Extremety ED: Negative for cyanosis or edema General Extremity: Negative for cyanosis or edema Neuro oriented x3 Sensorium / Orientation: alert Psych Appearance: unkempt Attitude: agitated Speech: other Skin no wounds Lesions: no lesions Rashes: no rashes Trauma: abrasion; Negative for laceration MDM MDM MDM Narrative Medical decision making narrative: The patient presenting with left leg pain which acutely started today when he said he was sweeping. On examination he does appear to be tender in the left gluteal region traction he does not seem to be tender anywhere else. His left leg is neurovascularly intact. He has brisk lower extremity pulses on the left and brisk cap refill. All his compartments are soft. He is given morphine and Toradol for pain. I will obtain an x-ray of his hip and obtain an ultrasound of the left lower extremity. It appears that his pain likely is sciatic but I cannot explain why his entire leg would be hurting. He does not have any back pain. I did review his medical record and it appears that he was recently here on 12/02/2020 with what was likely an opioid overdose which he snorted something and required 12 mg of Narcan. It also appears that he has anxiety, depression, GERD, tobacco use, alcohol abuse, COPD. When I asked him he stated he had no medical problems and he did not drink every day. I obtained imaging of the left hip which on my interpretation shows no acute fracture or subluxation. Patient had DVT study on the left lower extremity which was also negative. On reevaluation the patient was out of pain and was sleeping. Patient was given a prescription for Naprosyn. I counseled him that since he had recently had a narcotic overdose I do not feel comfortable giving him stronger pain medications. Patient amenable to this plan. Impression: 1. Right leg pain 2. Sciatica Radiography Diagnostic Testing: Radiology Impression Hip/Pelvis X-Ray 02/12/21 10:15 IMPRESSION: Normal x-ray examination of the pelvis and hip. Electronically Signed: Anuj Naylor MD at 10:49 EDT Tel , Service support , Discharge Plan Triage Chief Complaint: Other, Pain/Inj ED Provider: Emiliano Quezada Dx/Rx/DC Orders Instructions: ED Sciatica Prescriptions: New naproxen [Naprosyn] 500 mg tablet 500 mg PO BID PRN (Reason: pain) Qty: 30 RF: 0 Primary Care Provider: Rubia Coffey Referrals: Rubia Coffey MD [Primary Care Provider] - Disposition Disposition: Home, Self Care Discharge Date/Time: 02/12/21 11:44
--- NOTE | 2021-02-12 10:15 | RAD_ITS ---
STUDY: X-RAY - PELVIS AND LEFT HIP REASON FOR EXAM: Male, 61 years old. pain TECHNIQUE: 3 views of the pelvis and hip. COMPARISON: 03/31/2020 FINDINGS: There is a non-specific bowel gas pattern. Normal visualized soft tissue structures. Normal bilateral iliac wings, sacroiliac joints and visualized sacrum. Normal bilateral superior and inferior pubic rami. Normal pubic symphysis. Normal bilateral ischial tuberosities. Normal visualized femoral head. Normal acetabulum. Normal hip joint. RAD/HIP, UNI W/ Pelvis 2-3 Views IMPRESSION: Normal x-ray examination of the pelvis and hip. Electronically Signed: Anuj Naylor MD at 10:49 EDT Tel , Service support ,
[2021-02-12] MEDS: Ketorolac 15 MG/ML Vial IM (10:24)
[2021-02-12] MEDS: Morphine 4 MG/ML Syringe IM (10:24)
[2021-02-12 11:37] VITALS: BP 143/83; PULSE 82; RESP 16; O2SAT 100
== END 2021-02-12 11:44 | disposition home or self-care (01) ==
PROVIDERS: Emergency Provider Student in an Organized Health Care Education/Training Program; PCP Internal Medicine
DX: M54.32 Sciatica, left side (principal); M79.604 Pain in right leg; F17.210 Nicotine dependence, cigarettes, uncomplicated
CPT/HCPCS: 73502; 93971; 96372; 99284

== ENCOUNTER 2022-06-03 16:16 | Emergency (ER) | payer MEDICAID, SELFPAY ==
[2022-06-03 16:17] VITALS: BP 151/81; PULSE 95; RESP 14; TEMP 36.8; O2SAT 97; BMI 20.5
== END 2022-06-03 17:40 | disposition left against medical advice (07) ==
LOC: ED 17:51
PROVIDERS: PCP Internal Medicine
DX: Z53.21 Procedure and treatment not carried out due to patient leaving prior to being seen by health care provider (principal)

== ENCOUNTER 2022-06-04 11:27 | Emergency (ER) | payer MEDICAID, SELFPAY ==
[2022-06-04 11:27] VITALS: BP 125/82; PULSE 121; RESP 18; TEMP 35.8; O2SAT 99; BMI 22.2
--- NOTE | 2022-06-04 12:34 | CT_ITS ---
STUDY: CT ORBITS WITH CONTRAST REASON FOR EXAM: Male, 62 years old. Left eye swelling /redness RADIATION DOSAGE (If Supplied By Facility): CTDIvol = ( 29.38 ) mGy, DLP = ( 400.54 ) mGycm TECHNIQUE: The patient was scanned in a multi detector CT scanner. Transaxial imaging was performed following the intravenous administration of IV 100mL Isovue-370. Sagittal and coronal images were reconstructed. Individualized dose optimization techniques were used for this CT. COMPARISON: None. FINDINGS: There is visualized peripheral enhancing appearance of the left cornea. There is visualized enhancement and thickening of the left eyelid. There is a small focus of fluid or mass within the visualized medial aspect of the left eyelid abutting the left ocular surface and an additional smaller midline cystic structure suggesting small abscesses or cystic structures within the left eyelid. There is no visualized intraocular or extraconal space fluid collections.. Normal intraconal spaces. Normal optic nerve sheath complex. Normal bilateral extraocular muscles. There is minimal inflammation of the left side lacrimal glands. Normal bilateral medial and inferior orbital claire. Normal bilateral maxillary bones. Normal bilateral frontozygomatic arches. Normal bilateral zygomatic temporal arches. There is minimal mucoid thickening of the right side frontal sinus. There is mild mucoid thickening of the ethmoid sinuses. There is a small 1 cm right-sided maxillary mucosal retention cyst. Normal sphenoid sinuses. There is mild left facial periorbital soft tissue edema. CT/Orb Sella Post Fossa Ear W/CON IMPRESSION: Left-sided blepharitis. Two small abscess or cystic structure left eye lid as detailed above. Left side conjunctivitis. Mild left preseptal/ periorbital cellulitis. Electronically Signed: Es Martinez MD at 14:18 EDT ,
[2022-06-04] MEDS: 0.9% Normal Saline 1,000 ML 999 ML IV (13:01)
[2022-06-04 13:02] LABS: Absolute Lymphocyte Count 3.12 X10^3/uL (0.83-4.51); Absolute Neutrophil Count 7.6 X10^3/uL (2.0-7.7); Basophil# 0.08 X10^3/uL; Basophil% 0.6 % (0-1); Eosinophil# 0.52 X10^3/uL; Eosinophils% 4.2 % (0-5); Hematocrit 44.4 % (40-54); Hemoglobin 15.1 g/dL (13.0-16.5); Lymphocyte # 3.12 X10^3/ul (0.83-4.51); Mean Corpuscular Hgb 32.9 pg (27.0-32.0); Mean Corpuscular Volume 96.7 fL (80-94); Mean Platelet Vol. 9.5 fl (6.2-12.0); Monocyte# 1.11 X10^3/uL; Monocyte% 8.9 % (0-10); NRBC Flagged by Analyzer 0 % (0-5); Neutrophil % 61.1 % (47-70); Platelet Count 310 K/mm3 (150-450); RBC Distribution Width CV 12.4 % (11.6-14.6); RBC Distribution Width SD 44.4 fl (35.1-43.9); Red Blood Count 4.59 M/mm3 (4.6-6.2); White Blood Count 12.5 K/mm3 (4.4-11.0)
[2022-06-04] MEDS: Tetracaine 0.5% Ophthalmic Bottle 1 DRP OPHTHALMIC (13:02)
[2022-06-04] MEDS: Fluorescein 1 MG STRIP 1 STRIP OPHTHALMIC (13:02)
[2022-06-04] MEDS: Morphine 4 MG/ML Syringe IV (13:02)
[2022-06-04 13:15] LABS: Anion Gap 7 (5-15); BUN 20 mg/dL (7-18); BUN/Creat Ratio 25.1 RATIO (10-20); Calcium,Total 8.8 mg/dL (8.5-10.1); Chloride 106 mmol/L (98-107); EST Glomerular Filtration Rate 105 mL/min (>60); Est Glom Filt Rate - Afr Amer 127 mL/min (>60); Estimated Creatinine Clearance 97.65 ml/min; Glucose 123 mg/dL (74-106); Sodium Level 139 mmol/L (136-145)
[2022-06-04 14:01] VITALS: BP 125/82; PULSE 121; RESP 18; TEMP 35.8; O2SAT 99
[2022-06-04 15:22] VITALS: PULSE 71; RESP 18; O2SAT 99
--- NOTE | 2022-06-04 15:38 | EX.ED.VIS.EY ---
HPI History of Present Illness Chief Complaint: Eye Problem Informant: patient Narrative Narrative: Patient is a 62-year-old male with history of alcohol and tobacco abuse presenting with 2 weeks of worsening left-sided eyelid redness, swelling and drainage. He is also blurry vision. He has a headache. Notes that before this started he was moving furniture and cleaning up an old barn and may be got dust in his eye. He is previously had cataract surgery and he believes it was with Dr. Muller. He tried to come to the ER last night but it was too busy so he left. Patient denies any fever or chills. No nausea or vomiting. No other complaints at this time. Has had prior bilateral cataract surgery. [facility] Medical History Alcoholism Depression Home Medications cefdinir 300 mg capsule 300 mg PO Q12H #14 caps 06/04/22 [Rx Last Taken Unknown] sulfamethoxazole 800 mg-trimethoprim 160 mg tablet (Bactrim DS) 1 tab PO BID 7 days #14 tabs 06/04/22 [Rx Last Taken Unknown] Allergy/AdvReac Type Severity Reaction Status Date / Time Penicillins Allergy Angioedema Verified 06/04/22 11:29 Surgical History H/O foot surgery Social History Smoking Status: Current every day smoker tobacco type: cigarettes alcohol intake: current ROS ROS ED Constitutional Constitutional ED: Denies chills or fever(s) Eyes Eyes: Reports blurry vision left and other Details: left eye pain, eyelid swelling ENT ENT ED: Denies rhinorrhea or sore throat Cardiovascular Cardiovascular: Denies chest pain Respiratory/Chest Respiratory/Chest: Denies cough Gastrointestinal Gastrointestinal: Denies nausea or vomiting Musculoskeletal Musculoskeletal: Denies arthralgias or myalgias Integumentary Denies rash Neurologic Neurologic: Reports headache(s); Denies weakness Psychiatric Psychiatric: Denies anxiety or depression Hematologic/Lymphatic Hematologic/Lymphatic: Denies easy bleeding or easy bruising EXAM Physical Exam Const Vital Signs: 06/04/22 11:27 06/04/22 14:01 06/04/22 15:22 Temperature 96.5 F L 96.5 F L Temperature Source Temporal Temporal Pulse Rate 121 H 121 H 71 Respiratory Rate 18 18 18 Blood Pressure 125/82 H 125/82 H Blood Pressure Mean 96 96 Pulse Ox 99 99 99 Oxygen Delivery Method Room Air Room Air Room Air Positive well nourished and well developed General Appearance ED: well developed and NAD HEENT atraumatic Nose: external nose normal Eyes Eyes Narrative: Swelling of the left eyelids with associated erythema. Purulent drainage appreciated. Conjunctival injection present. Pupils equal round reactive to light. EOMI. No proptosis appreciated. On fluorescein exam patient has no uptake. No foreign bodies appreciated. Anterior chamber is quiet on slit-lamp exam. Neck supple Resp normal respiratory effort Cardio regular rate, regular rhythm and no murmurs Extremity normal to inspection Neuro oriented x3, CN's II-XII intact bilaterally and moves all extremities Sensorium / Orientation: alert Skin no wounds MDM MDM MDM Narrative Medical decision making narrative: Patient is evaluated for worsening redness, drainage and pain of the left eye. Clinically he has conjunctivitis and preseptal cellulitis however I am concerned for possible septal cellulitis given his symptoms. Initially patient is tachycardic however this improves with IV fluids and pain control. CBC shows a mild leukocytosis of 12.5. No other acute abnormalities and his BMP is normal. CT of the orbit with IV contrast shows left-sided blepharitis. 2 small abscesses or cystic structures of the left eyelid and left-sided conjunctivitis as well as mild left preseptal/periorbital cellulitis. Case is discussed with ophthalmology on-call, Dr. Proctor, who will see the patient in office tomorrow. Patient is started on dual therapy with Bactrim and cefdinir. As this is a third-generation cephalosporin there is a low chance of cross-reactivity as he does have a penicillin allergy. Will give first dose in the ER and monitor. Patient is also started on erythromycin ointment. Patient agreeable this plan of care. Discharged home in stable condition. Lab Data Labs: Laboratory Results - last 24 hr 06/04/22 06/04/22 12:55 12:55 WBC 12.5 H RBC 4.59 L Hgb 15.1 Hct 44.4 MCV 96.7 H MCH 32.9 H MCHC 34.0 RDW Std Deviation 44.4 H RDW Coeff of Kunal 12.4 Plt Count 310 MPV 9.5 Immature Gran % (Auto) 0.200 Neut % (Auto) 61.1 Lymph % (Auto) 25.0 [place] % (Auto) 8.9 Eos % (Auto) 4.2 Baso % (Auto) 0.6 Absolute Neuts (auto) 7.6 Absolute Lymphs (auto) 3.12 Nucleated RBC % 0 Sodium 139 Potassium 4.0 Chloride 106 Carbon Dioxide 26.0 Anion Gap 7 BUN 20 H Creatinine 0.80 Estim Creat Clear Calc 97.65 Est GFR (MDRD) Af Amer 127 Est GFR (MDRD) Non-Af 105 BUN/Creatinine Ratio 25.1 H Glucose 123 H Calcium 8.8 Radiography Diagnostic Testing: Clinical Impression(s) from Imaging Studies CT Orbit Sella Inner 06/04/22 12:34 IMPRESSION: Left-sided blepharitis. Two small abscess or cystic structure left eye lid as detailed above. Left side conjunctivitis. Mild left preseptal/ periorbital cellulitis. Electronically Signed: Es Martinez MD at 14:18 EDT Reading Location ID and State: [facility] / [place] Tel , Service support , Discharge Plan Triage Chief Complaint: Eye Problem ED Provider: Renay Grover Dx/Rx/DC Orders Clinical Impression: Blepharitis of left eye, Acute conjunctivitis, left eye, Preseptal cellulitis of left eye Instructions: ED Blepharitis, ED Conjunctivitis, Bacterial, ED Periorbital Cellulitis Prescriptions: New sulfamethoxazole-trimethoprim [Bactrim DS] 800-160 mg tablet 1 tab PO BID 7 Days Qty: 14 0RF cefdinir 300 mg capsule 300 mg PO Q12H Qty: 14 0RF Primary Care Provider: Rubia Coffey Referrals: Rubia Coffey MD [Primary Care Provider] - Samm Proctor MD [Med Staff - Active Staff] - 1 Day for another exam (Call in the morning to be seen tomorrow (Sunday)) Activity Restrictions/Additional Instructions: Take the entire course of antibiotics. Use the eye ointment 4 times a day into your left eye for 7 days. Disposition Disposition: Home, Self Care Discharge Date/Time: 06/04/22 16:10
[2022-06-04] MEDS: Smz/Tmp Ds Tablet 1 TABLET PO (16:03)
[2022-06-04] MEDS: Erythromycin Base 1 OPTH.TUBE 1 APPLIC LEFT EYE (16:03)
[2022-06-04] MEDS: Cefdinir 300 MG Capsule PO (16:08)
== END 2022-06-04 16:10 | disposition home or self-care (01) ==
PROVIDERS: Emergency Provider Emergency Medicine; PCP Internal Medicine; Visit Provider Emergency Medicine
DX: L03.213 Periorbital cellulitis (principal); H01.006 Unspecified blepharitis left eye, unspecified eyelid; H10.32 Unspecified acute conjunctivitis, left eye; F17.210 Nicotine dependence, cigarettes, uncomplicated; R51.9 Headache, unspecified
CPT/HCPCS: 70481; 80048; 85025; 96361; 96374; 99284; J7030; Q9967; A4216

== ENCOUNTER 2022-09-17 05:16 | Observation (INO) | payer MEDICAID, SELFPAY ==
[2022-09-17] VITALS (12 sets, daily range): BP systolic 126–163; BP diastolic 71–99; PULSE 63–106; RESP 15–18; TEMP 36.3–37.1; O2SAT 91–96; BMI 20.2; BMI 20.1
--- NOTE | 2022-09-17 | IMM_PTH ---
PATIENT: SHANTI MOLINA LOC: [facility] U#:[id number] AGE/SX: 62/M ROOM: [facility] RE09/17/[address]: Dr. Miguel A Guevara MD : 1960 BED: 1 DIS: 09/19/2022 SPEC #: [id number] RECD: 09/19/22 13:56 STATUS: SALO REQ #: [id number] URBANO: 09/17/22 00:[address]: Polo Monte DEPT: IMMUNOHISTOCHEMISTRY RECD BY: Hilda Black ENTERED: 09/19/22 13:59 SP TYPE: IMMUNO OTHR DR: MD Dr. Juventino Seals MD Dr. Nana Yaa Koram, MD Dr. Nicholas F Kotsonis, MD Tissues: THORACIC FLUID Procedures: RCC (add) NAPSIN A (add) Stone Ret (add) CK20 (add) CK7 (add) CK8 (add) BAER-2 (add) HEP PAR (add) KI-67 (add) P53 (add) TTF1 (add) Pankeratin (initial) P40 (add) PSAP (add) S-100 (add) PHYSICIAN & [place] [id number] SPECIMEN INFORMATION: Tissue Source: Thoracentesis fluid Clinical Info: Left pleural effusion, left lung mass, COPD Specimen Number: [id number] CPT code: 11658, 38964 x14 METHODOLOGY: Deparaffinized sections of prefer/formalin-fixed tissue or PAP/DQ stained slides are incubated with monoclonal/polyclonal antibodies/oligonucleotide probes. Localization is made via biotin free immunoperoxidase method. Appropriate controls are performed and reacted as expected. Results on target cell population are indicated in the following table: RESULTS: ANTIBODY / CLONE RESULT AE1-3 (AE1/AE3/PCK26) positive CK7 (OV-TL12/30) positive CK8 (24ysrzX54) positive CK20 (KS20.8) negative BAER-2 (SP21) positive S-100 (4C4.9) negative TTF-1 (8G7G3/1) positive Napsin A (Rabbit Polyclonal) positive HepPar (OCh1E5) negative RCC (PN-15) negative PSAP (PASE/4LJ) negative CALRET (polyclonal) negative P40 (BC28) negative P53 (DO-7) positive, very low and weak (wild type) Ki-67 (30-9) positive, moderate These tests were developed and their performance characteristics determined by [facility]. They may not have been cleared or approved by the U.S. Food and Drug Administration. The FDA has determined that such clearance or approval is not necessary. The above immunohistochemical/dualISH markers are ordered by Dr. Cisneros and reviewed by the Pathologist. INTERPRETATION: Thoracentesis fluid (cell block): Malignant cells present derived from non-small cell carcinoma, favor adenocarcinoma consistent with lung primary. SJ:angelo 09/20/2022
--- NOTE | 2022-09-17 05:29 | EKG12_ITS ---
Test Reason : DYSRHYTHMIA Blood Pressure : / mmHG Vent. Rate : 100 BPM Atrial Rate : 100 BPM P-R Int : 142 ms QRS Dur : 128 ms QT Int : 366 ms P-R-T Axes : 048 051 030 degrees QTc Int : 472 ms Normal sinus rhythm Non-specific intra-ventricular conduction block Abnormal ECG Confirmed by ROMA ALBA, ZITA ([id number]), mapping editor YRN BAHENA ([id number]) on 09/18/2022 11:42:04 AM Referred By: LI Confirmed By:ZITA BRANDON MD
--- NOTE | 2022-09-17 05:35 | RAD_ITS ---
We are attempting to reach an attending provider to discuss findings. An addendum with communication details will be sent when the communication is complete. EXAM: XR CHEST, 1 VIEW CLINICAL INDICATION: cough TECHNIQUE: Frontal view of the chest. This report was created using Simplebooklet report generation technology. COMPARISON: 12/02/2020. FINDINGS: LUNGS AND PLEURAL SPACES: Very large left pleural effusion with near complete opacification of the left hemithorax. No pneumothorax. HEART: Unremarkable. Cardiac silhouette not enlarged. MEDIASTINUM: Shift of the mediastinum to the right. BONES/JOINTS: Unremarkable. SOFT TISSUES: Unremarkable. RAD/Chest 1 View (Portable) IMPRESSION: Very large left pleural effusion with shift of the mediastinum to the right. Electronically Signed: Bin Parish MD at 5:52 EST ,
[2022-09-17] MEDS: 0.9% Normal Saline 1,000 ML 1000 ML IV (05:36)
[2022-09-17] MEDS: Ketorolac 15 MG/ML Vial IV (05:36)
[2022-09-17 05:43] LABS: Absolute Lymphocyte Count 2.77 X10^3/uL (0.83-4.51); Absolute Neutrophil Count 6.8 X10^3/uL (2.0-7.7); Basophil# 0.09 X10^3/uL; Basophil% 0.8 % (0-1); Eosinophil# 0.62 X10^3/uL; Eosinophils% 5.4 % (0-5); Hematocrit 44.4 % (40-54); Lymphocyte # 2.77 X10^3/ul (0.83-4.51); Lymphocyte % 24.2 % (19-41); Mean Corp Hgb Conc 33.8 g/dL (32-36); Mean Corpuscular Hgb 31.4 pg (27.0-32.0); Mean Corpuscular Volume 93.1 fL (80-94); Mean Platelet Vol. 9.6 fl (6.2-12.0); Monocyte% 9.6 % (0-10); NRBC Flagged by Analyzer 0 % (0-5); Neutrophil # 6.84 X10^3/uL (2.7-7.7); Neutrophil % 59.7 % (47-70); Platelet Count 339 K/mm3 (150-450); RBC Distribution Width CV 12.3 % (11.6-14.6); RBC Distribution Width SD 42.6 fl (35.1-43.9); Red Blood Count 4.77 M/mm3 (4.6-6.2); White Blood Count 11.5 K/mm3 (4.4-11.0)
--- NOTE | 2022-09-17 05:52 | EX.ED.DYSGE1 ---
HPI History of Present Illness Chief Complaint: General Illness Narrative Narrative: Patient presents with generalized weakness, subjective fevers, difficulty breathing cough over the past few days. He also has generalized myalgias. He had some nausea and vomiting over the past few days. He does have a history of alcohol abuse, he tells me he has drank a few beers last night. [facility] Medical History Alcoholism Depression Home Medications NK 09/17/22 [History Last Taken Unknown] Allergy/AdvReac Type Severity Reaction Status Date / Time Penicillins Allergy Angioedema Verified 06/04/22 11:29 Surgical History H/O foot surgery Social History Smoking Status: Current every day smoker tobacco type: cigarettes alcohol intake: current ROS ROS ED ROS Narrative Past medical history: Reviewed Medications: Reviewed Social history: Noncontributory Review of systems: All systems negative except as indicated General: Subjective fevers Eyes: No visual changes ENT: Cough and congestion Neck: No neck pain Cardiovascular: No chest pain Respiratory: Dyspnea Gastrointestinal: Some nausea and vomiting. Genitourinary: No dysuria Musculoskeletal: Generalized myalgias Skin: No rash Neurological: No focal weakness EXAM Physical Exam Narrative Exam Narrative: Physical exam General: Patient appears chronically ill, he is quite thin. Head: Normocephalic, Atraumatic Eyes: Conjunctiva not pale ENT: Slightly dry mucous membranes. Smell of fermentation and tobacco on his breath Neck: Supple, Nontender, No lymphadenopathy Cardiovascular: Regular rate, Regular rhythm no obvious murmur Respiratory: Coarse breath sounds on the right, diminished breath sounds on the left Abdomen: Soft, Nontender, Nondistended Back: Nontender, Normal Inspection. Negative for: CVA tenderness Extremities: Nontender, No edema Skin: Normal color, No rash Neurological: Patient is lucid and coherent and gives me a reasonable history and physical. Const Vital Signs: 09/17/22 05:16 09/17/22 05:19 Temperature 98.1 F Temperature Source Temporal Pulse Rate 101 H Respiratory Rate 18 Respiratory Effort Normal Non-Labored Respiratory Pattern Normal Blood Pressure 144/99 H Blood Pressure Mean 114 Pulse Ox 95 Oxygen Delivery Method Room Air [facility] Lab Data Labs: Laboratory Results - last 24 hr 09/17/22 05:35 WBC 11.5 H RBC 4.77 Hgb 15.0 Hct 44.4 MCV 93.1 MCH 31.4 MCHC 33.8 RDW Std Deviation 42.6 RDW Coeff of Kunal 12.3 Plt Count 339 MPV 9.6 Immature Gran % (Auto) 0.300 Neut % (Auto) 59.7 Lymph % (Auto) 24.2 [place] % (Auto) 9.6 Eos % (Auto) 5.4 H Baso % (Auto) 0.8 Absolute Neuts (auto) 6.8 Absolute Lymphs (auto) 2.77 Nucleated RBC % 0 Radiography Chest X-Ray - ED: 1 View Diagnostic Testing: Clinical Impression(s) from Imaging Studies Chest X-Ray 09/17/22 05:35 IMPRESSION: Very large left pleural effusion with shift of the mediastinum to the right. Electronically Signed: Bin Parish MD at 5:52 EST , Chest x-ray interpreted by me shows a large left-sided pleural effusion. EKG Initial EKG: Comments: Sinus rhythm with a rate of 100. Normal NC interval. QTc slightly elevated 472. Nonspecific intraventricular conduction delay. No obvious acute ischemic changes. Interpreted by emergency doctor Treatment and Re-Evaluation Narrative: A. Problems addressed Patient has had significant weight loss and he is getting more unsteady gait if he walks he is about to fall. He is found to have a large left-sided pleural effusion which is new however on chest x-ray from 2020 there is a mass on the left upper lobe of the lung. Patient is aware of it when I told him but he tells me he never followed up with an oncologist or any physician for it. He likely has a large pleural effusion secondary to cancer. He is quite weak, dehydrated, he has shown that he is noncompliant therefore I believe he needs hospitalization. B. Amount and/or complexity of the data 1. I reviewed prior chest x-ray from 2020 CBC, CMP, lactate were ordered and interpreted by me 2. Independent interpretation of test Telemetry: Sinus rhythm with a rate in the low 100s without any ectopy on the monitor 3. I talked to the hospitalist for admission C. Risk of complications and/or morbidity Differential diagnosis: COVID not shown on testing, pneumothorax, this was not found on x-ray, pneumonia, less likely secondary to the large pleural effusion. Dehydration, alcoholic ketoacidosis. Patient has the following social determinants of health and it impacts their health care-he is an alcoholic, he has shown noncompliance. Discharge Plan Triage Chief Complaint: General Illness ED Provider: Raj Joe Dx/Rx/DC Orders Clinical Impression: Alcoholism, Pleural effusion, Abnormal weight loss, Mass of left lung Prescriptions: No Action NK Primary Care Provider: Rubia Coffey Referrals: Rubia Coffey MD [Primary Care Provider] -
[2022-09-17 06:01] LABS: ALB/GLOB Ratio 0.8 RATIO (0.9-2.4); AST(SGOT) 13 U/L (15-37); Alanine Aminotransfer ALT/SGPT 14 U/L (16-61); Albumin, Serum 3.3 g/dL (3.2-5.0); Alkaline Phosphatase 115 U/L (45-117); Anion Gap 10 (5-15); BUN 9 mg/dL (7-18); BUN/Creat Ratio 14.4 RATIO (10-20); Calcium,Total 8.4 mg/dL (8.5-10.1); Chloride 105 mmol/L (98-107); Creatinine, Serum 0.62 mg/dL (0.70-1.30); EST Glomerular Filtration Rate 140 mL/min (>60); Est Glom Filt Rate - Afr Amer 169 mL/min (>60); Estimated Creatinine Clearance 117.74 ml/min; Globulin 3.9 g/dL (2.2-4.2); Glucose 98 mg/dL (74-106); Potassium 3.9 mmol/L (3.5-5.1); Protein, Total 7.2 g/dL (6.4-8.2); Sodium Level 138 mmol/L (136-145); Troponin-I HS 8 pg/mL (3.0-78.0)
[2022-09-17 06:25] LABS: International Normalized Ratio 1.1; Prothrombin Time (Protime)PT. 13.4 SECONDS (11.7-14.9)
[2022-09-17 06:26] LABS: Partial Thromboplast Time 31.2 Seconds (24.1-36.2)
--- NOTE | 2022-09-17 06:26 | HP.PCM.HOS_ITS ---
[facility] - General General Date of Admission: 09/17/22 Date of Service: 09/17/22 Chief Complaint: Shortness of breath HPI Narrative SHANTI MOLINA, is a 62 M with a significant history of lung mass, alcoholism and tobacco abuse who presents emergency department with 1 week history of progressively worsening shortness of breath. Associated with his symptoms is his upper respiratory symptoms of sneezing, runny nose and productive cough. Also he reports weakness with difficulty in ambulation. Reportedly he has been wobbling. Also patient complain of generalized body pains, subjective fever and chills. [facility] Medical History Alcoholism Depression Home Medications NK 09/17/22 [History Last Taken Unknown] Allergy/AdvReac Type Severity Reaction Status Date / Time Penicillins Allergy Angioedema Verified 06/04/22 11:29 Family History (Updated 09/17/22 @ 06:[address] Juventino Carson MD) Other Cancer Surgical History H/O foot surgery Social History Smoking Status: Current every day smoker tobacco type: cigarettes alcohol intake: current ROS ROS Narrative Pertinent positives and pertinent negatives as noted in HPI. All other systems were reviewed and are negative Vital Signs Vital Signs Vital Signs: 09/17/22 05:16 09/17/22 05:19 Temperature 98.1 F Temperature Source Temporal Pulse Rate 101 H Respiratory Rate 18 Respiratory Effort Normal Non-Labored Respiratory Pattern Normal Blood Pressure 144/99 H Blood Pressure Mean 114 Pulse Ox 95 Oxygen Delivery Method Room Air Weight Weight: 65.7 kg Body Mass Index (BMI) 20.2 Physical Exam Narrative Physical exam: General: Well-nourished, well-developed. Head: Normocephalic, atraumatic, no tenderness Eyes: Vision is grossly intact. EOMI ENT, no trauma, moist mucous membranes, no rhinorrhea Neck: Nontender, No thyromegaly. CVS: Regular rate and rhythm. S1-S2 present. No murmur, gallop or rub. Respiratory : Diminished at left posterior side. chest wall nontender, no wheezing Abdomen: Soft, nontender, nondistended, normal bowel sounds, no masses : Deferred Back: Nontender, no CVA tenderness, no midline spinal tenderness, deformities, step-offs Extremities: Nontender full range of motion, no trauma Skin: Normal color, no trauma, abrasions Neuro: Alert, oriented, cranial nerves II through XII grossly intact. Psychiatry: Normal mood. Normal affect. Not depressed. Not anxious. Results Lab / Micro Data Result Diagrams: 09/17/22 05:35 09/17/22 05:35 Labs: Laboratory Results - last 24 hr 09/17/22 05:35: WBC 11.5 H, RBC 4.77, Hgb 15.0, Hct 44.4, MCV 93.1, MCH 31.4, MCHC 33.8, RDW Std Deviation 42.6, RDW Coeff of Kunal 12.3, Plt Count 339, MPV 9.6, Immature Gran % (Auto) 0.300, Neut % (Auto) 59.7, Lymph % (Auto) 24.2, [place] % (Auto) 9.6, Eos % (Auto) 5.4 H, Baso % (Auto) 0.8, Absolute Neuts (auto) 6.8, Absolute Lymphs (auto) 2.77, Nucleated RBC % 0 09/17/22 05:35: Sodium 138, Potassium 3.9, Chloride 105, Carbon Dioxide 23.0, Anion Gap 10, BUN 9, Creatinine 0.62 L, Estim Creat Clear Calc 117.74, Est GFR (MDRD) Af Amer 169, Est GFR (MDRD) Non-Af 140, BUN/Creatinine Ratio 14.4, Glucose 98, Calcium 8.4 L, Total Bilirubin 0.40, AST 13 L, ALT 14 L, Alkaline Phosphatase 115, Troponin I High Sens 8, Total Protein 7.2, Albumin 3.3, Globulin 3.9, Albumin/Globulin Ratio 0.8 L 09/17/22 05:35: Ethyl Alcohol 15.0 Micro: Microbiology 09/17/22 05:38 Nasal Secretion SARS-CoV-2 & FLU Antigen (Rapid) - Final Radiology Impression Chest X-Ray 09/17/22 05:35 IMPRESSION: Very large left pleural effusion with shift of the mediastinum to the right. Electronically Signed: Bin Parish MD at 5:52 EST , ADDENDUM: 09/17/22602 IMPRESSION: Very large left pleural effusion with shift of the mediastinum to the right. N.B. : The above Results were Read Back by Bin Parish MD to Dr. Raj Joe MD, and understanding confirmed on 09/17/2022 05:56:28 (ET). Electronically Signed: Bin Parish MD at 5:52 EST , ADDENDUM: 09/17/22602 IMPRESSION: undefined Assessment & Plan Assessment/Plan (1) Pleural effusion: (2) Alcoholism: (3) Tobacco use disorder: (4) Mass of left lung: PLAN: Plan Left pleural effusion Chest x-ray was visualized and independently interpreted. I agree with radiology interpretation of large left pleural effusion with mediastinal shift. Emergency plan doctor discussed the case with a trim machine adjuster who. pulmonary consult. Pleural studies ordered. Serum LDH ordered. Serum protein was obtained on presentation Tobacco use disorder Counseled. Declined nicotine patch Mass of left lung. Likely contributing to pleural effusion. Thoracentesis as above. Alcoholism Alcohol level on presentation was 15. Drinks about 1/5 of vodka a day. Last time patient drank reportedly was about 2 hours before presentation. CIWA protocol ordered. Counseled. Multivitamin, thiamine and folic acid ordered. URI symptoms Flonase ordered. CBC showed white count 11,500. Trend. Debility PT and OT to evaluate and treat. Generalized pain As needed Tylenol ordered. DVT prophylaxis: SCDs ordered. Charges/Coding Visit Charges Inpatient E&M: 22315 Init Hosp L3
[2022-09-17 06:40] LABS: Lactic Acid 1.6 mmol/L (0.4-1.9)
--- NOTE | 2022-09-17 07:42 | US_ITS ---
PROCEDURE: ULTRASOUND GUIDED THORACENTESIS. DATE: 09/18/2022. INDICATION: Male, 62 years old. Left pleural effusion. PHYSICIAN: Rd Hunt M.D. PROCEDURE: The risks, benefits, and alternatives to the procedure were explained to the patient. The specific risks of bleeding, infection, and pneumothorax requiring chest tube insertion were discussed and accepted. Written informed consent was obtained. Ultrasonographic evaluation of the left lower pleural space was carried out. An adequate pocket was identified. The patient was placed in the sitting, upright position. The overlying skin was prepped and draped in sterile fashion. 1% lidocaine was administered subcutaneously for local anesthesia. Under ultrasound guidance, a 5 [place] thoracentesis needle/catheter system was advanced into the left posterior lower pleural fluid collection. Approximately 1850 mL of anil-colored fluid fluid was drained. The catheter was removed, and a sterile dressing was applied. A specimen was collected and sent to the laboratory for analysis, as requested by the referring clinician. The patient tolerated the procedure well. A chest x-ray was ordered. US/Thoracentesis W US IMPRESSION: Ultrasound-guided left thoracentesis. Electronically Signed: Rd Hunt MD at 10:01 [facility] ,
[2022-09-17] MEDS: LORazepam 2 MG/ML Syringe IV (09:08)
[2022-09-17] MEDS: Ondansetron 4 MG/2 ML Vial IV (09:08)
[2022-09-17] MEDS: 0.9% Saline Lock 10 ML Syringe IV (09:08)
[2022-09-17 11:25] LABS: LDH 286 U/L (87-241)
--- NOTE | 2022-09-17 11:44 | RAD_ITS ---
INDICATION: Assess for pneumothorax, post thoracentesis EXAMINATION/TECHNIQUE: X-RAY - XR Chest 2 Views COMPARISON: September 17, 2022 at 11:49 AM FINDINGS: LINES/DEVICES: None. LUNGS: There is a large left pleural effusion. There is a round masslike opacity within the left upper lung. No pneumothorax is visualized. MEDIASTINUM AND CARDIOVASCULAR STRUCTURES: There is cardiomegaly. Central airways and mediastinal contour are unremarkable. BONES AND SOFT TISSUES: Unremarkable. RAD/Chest Insp/Exp 2 View IMPRESSION: Large left pleural effusion. Rounded opacity within the left upper lung concerning for an underlying mass. Cardiomegaly. Electronically Signed: Stacey Beckman MD at 12:59 EST ,
--- NOTE | 2022-09-17 12:00 | FLU_PTH ---
PATIENT: SHANTI MOLINA LOC: [facility] U#:[id number] AGE/SX: 62/M ROOM: [facility] RE09/17/[address]: Dr. Miguel A Guevara MD : 1960 BED: 1 DIS: 09/19/2022 SPEC #: [id number] RECD: 09/18/22 10:46 STATUS: SALO REQ #: [id number] URBANO: 09/17/22 12:[address]: Polo Monte DEPT: CYTOLOGY RECD BY: Cinda Garcia ENTERED: 09/18/22 10:46 SP TYPE: Fluid OTHR DR: MD Dr. Juventino Seals MD Dr. Lee Ann Baggott, MD Dr. Nana Yaa Koram, MD Dr. Nicholas F Kotsonis, MD Tissues: Pleural fluid, NOS Procedures: Special Stain Group II Mucicarmine Stain (control) Surgery Specimen Level IV Cytospin Fluid Comments: @ Ordering doctor for SSII edited from to @ by JANET at 09/18/22 140 @ Ordering doctor for SUIV edited from to @ by JANET at 09/18/22 1408 @ Ordering doctor for CYSPIN edited from to @ by JANET at 09/18/22 1408 @ Submitting doctor edited from to DR.LBAGGO Morocho by RGOCONSTANCE at 09/18/22 1408 HEADER OPERATION: Left thoracentesis PRE-OP DIAGNOSIS: Left pleural effusion, left lung mass, COPD TISSUE SUBMITTED: Thoracentesis fluid for cytology DIAGNOSIS CYTOLOGY Thoracentesis fluid for cytology (cytospin and cell block): Positive for malignant cells derived from non-small cell carcinoma, favor adenocarcinoma, consistent with lung primary. See comment. AM:angelo 09/19/2022 COMMENT Immunohistochemistry ([id number]) supports the above diagnosis. Mucin stain with matched control was used in the evaluation of this case. Tumor cells are focally positive for mucin. This case has been reviewed in consultation with Dr. Alfredo who concurs with the above diagnosis. CYTOLOGY STUDY Slides are reviewed. CYTOLOGY GROSS Received is 1100 ml of yellow cloudy fluid labeled with the patient's name and and designated per the requisition as thoracentesis. Submitted for cytology preparation including cell block. / angelo 09/18/2022 TC:0 CPT: 04340, 57659, 66856
--- NOTE | 2022-09-17 12:02 | PCM.OP.PRO ---
Assessment & Plan Assessment/Plan (1) Pleural effusion: PLAN: Plan Left pleural effusion, without respiratory compromise Left lung mass COPD Alcohol abuse, alcohol withdrawal Plan for left thoracentesis at the request of hospitalist for diagnosis. CT chest after thoracentesis for reevaluation of left lung mass Procedure Report Date of Procedure: 09/17/22 Preoperative labs were found to be acceptable to proceed with the thoracentesis. Chest x-ray was reviewed. Past medical history reviewed Physical exam was remarkable for a disheveled man who is sedated for alcohol withdrawal, pleasant, cooperative, no acute distress. Vital signs were normal. O2 saturation was 100% on 2 L/min for the procedure. Lungs remarkable for diminished breath sounds in the left hemithorax, vocal fremitus diminished breath sounds 4/[address] the left hemithorax. Cardiac unremarkable Extremities with no clubbing cyanosis or edema. Neuro: Alert, nods yes or no appropriately, somewhat verbal, Consent was obtained, procedure and risks explained to patient, nursing and nursing students were present at the time of consent. Patient gave his consent to proceed. While sitting at the bedside in room 106, the left chest was auscultated and the fluid level superior and inferior aspects were determined with physical exam. The left chest was cleaned with chlorhexidine, allowed to dry, and then anesthetized with 4 cc of 1% lidocaine with a 23-gauge needle. Tolerated well. After a waiting period for adequate local anesthesia, a 2 mm skin nita was made with a kit provided scalpel The kit sterile catheter was introduced into the left hemithorax, clear yellow fluid was obtained, and the catheter was attached to the kit sterile drainage bag. 1200 cc of clear yellow fluid was withdrawn from the left hemithorax without difficulty and without pain discomfort of the patient. O2 saturation remained at 100% with stable vital signs throughout the procedure. The patient had 1 cough during the procedure. Samples were sent for protein, glucose, LDH, pH, cell count, differential, [employer], [employer], and cytopathology. Patient tolerated the procedure well. Inspiration expiration chest x-ray was ordered after the procedure to rule out pneumothorax and ascertain the fluid level. Although more fluid was noted to be present in the left hemithorax at the end of the procedure, the volume was limited to 1200 cc to prevent reexpansion pulmonary edema. He will likely need a repeat thoracentesis tomorrow. Polo Monte MD, FCCP [facility] Procedures Pulmonary [facility] Procedures [id number]: [id number] Aspirate pleura w/o imaging
[2022-09-17 12:07] LABS: Cytology, Body Fluid / CSF SEE PATHOLOGY REPORT
--- NOTE | 2022-09-17 12:18 | CT_ITS ---
STUDY: CTA CHEST REASON FOR EXAM: Male, 62 years old. L lung mass follow up history of thoracentesis. RADIATION DOSAGE (If Supplied By Facility): CTDIvol = ( 15.31 ) mGy, DLP = ( 504.07 ) mGycm TECHNIQUE: The examination was performed with the intravenous administration of IV 100mL Isovue-370. Post-processing of the angiographic images was performed, with multiplanar reformation and 3D reconstruction. Individualized dose optimization techniques were used for this CT. COMPARISON: May 01, 2013 FINDINGS: There is a large left pleural effusion. There is consolidation throughout the left upper and lower lobes with partial collapse of the lobes. There is mass effect on the mediastinum with left to right midline shift. Within the left upper lobe there is a partially low in attenuation 3.9 x 3.0 x 3.4 cm subpleural round opacity. There are a few scattered foci of air within the anterior left hemithorax. Normal enhancement of the main pulmonary artery and right and left pulmonary arteries. Normal enhancement of the bilateral peripheral pulmonary arteries. There is no demonstrated pulmonary embolism. There are peripheral calcifications of the thoracic aorta and visualized great vessels. There is no demonstrated aortic dissection. There are calcifications of the coronary arteries. Normal mediastinum. Normal hilar regions. There is a deformity of the sternum as well as bilateral ribs suggestive of old fractures. Normal visualized upper abdomen. CT/CTA Chest W/WO Contrast IMPRESSION: No demonstrated pulmonary embolism or arterial dissection. 3.9 x 3.0 x 3.4 cm left upper lobe masslike opacity concerning for malignancy. Large left pleural effusion with consolidation within the left upper and lower lobes associated with partial collapse of the lobes. Atherosclerosis. Electronically Signed: Stacey Beckman MD at 14:16 EST ,
[2022-09-17] MEDS: Fluticasone 0.05% 1 SPRAY NASAL.SRY 2 SPRAY NASAL (12:30)
[2022-09-17 12:47] LABS: Body Fluid Mononuclear WBC % 90.7 %; Body Fluid Polynuclear WBC # 0.094 10^3/uL; Body Fluid Polynuclear WBC % 9.3 %; Body Fluid Total Cells Counted 1.042 10^3/ul; White Blood Count/Body Fluid 1.014 10^3/uL
[2022-09-17 13:35] LABS: Glucose, Body Fluid 92 mg/dL (40-70); LDH,Body Fluid 237 Units/l (Not Establ.); Protein, Body Fluid 4.8 g/dL (Not Establ.)
--- NOTE | 2022-09-17 14:01 | PN.HOSP_ITS ---
Reason for Visit Reason for Visit: Diagnoses Alcohol dependence, uncomplicated (09/17/22) Nicotine dependence, unspecified, uncomplicated (09/17/22) Pleural effusion, not elsewhere classified (09/17/22) Other nonspecific abnormal finding of lung field (09/17/22) Subjective Subjective Patient seen and examined. He was drowsy and so unable to do review of systems. HE was on 4L of oxygen at time of review. He is being managed for shortness of breath due to very large left pleural effusion with mediastinal shift to the right. Pulmonology is on board. He is on 4L of oxygen, but is otherwise hemodynamically stable. Objective Data Objective Data Vital Signs: Vital Signs Temp Pulse Resp BP Pulse Ox O2 Del Method O2 Flow Rate 98.6 F 99 18 127/71 H 91 Nasal Cannula 4 09/17/22 12:39 09/17/22 12:39 09/17/22 12:39 09/17/22 12:39 09/17/22 12:39 09/17/22 13:49 09/17/22 13:49 Oxygen Flow Rate (L/min) 4 Oxygen Delivery Method Nasal Cannula Weight: 144 lb 6.444 oz Body Mass Index (BMI) 20.1 Intake & Output: Intake and Output for Last 24 Hours 09/15/22 09/16/22 09/17/22 23:59 23:59 23:59 Intake Total 1500 / 1500 Balance 1500 / 1500 Lab / Micro Data Result Diagrams: 09/17/22 05:35 09/17/22 05:35 Labs: Laboratory Results - last 24 hr 09/17/22 05:35: WBC 11.5 H, RBC 4.77, Hgb 15.0, Hct 44.4, MCV 93.1, MCH 31.4, MCHC 33.8, RDW Std Deviation 42.6, RDW Coeff of Kunal 12.3, Plt Count 339, MPV 9.6, Immature Gran % (Auto) 0.300, Neut % (Auto) 59.7, Lymph % (Auto) 24.2, [place] % (Auto) 9.6, Eos % (Auto) 5.4 H, Baso % (Auto) 0.8, Absolute Neuts (auto) 6.8, Absolute Lymphs (auto) 2.77, Nucleated RBC % 0 09/17/22 05:35: Sodium 138, Potassium 3.9, Chloride 105, Carbon Dioxide 23.0, Anion Gap 10, BUN 9, Creatinine 0.62 L, Estim Creat Clear Calc 117.74, Est GFR (MDRD) Af Amer 169, Est GFR (MDRD) Non-Af 140, BUN/Creatinine Ratio 14.4, Glucose 98, Calcium 8.4 L, Total Bilirubin 0.40, AST 13 L, ALT 14 L, Alkaline Phosphatase 115, Troponin I High Sens 8, Total Protein 7.2, Albumin 3.3, Globulin 3.9, Albumin/Globulin Ratio 0.8 L 09/17/22 05:35: Ethyl Alcohol 15.0 09/17/22 05:35: Magnesium 2.0 09/17/22 05:35: Lactate Dehydrogenase 286 H 09/17/22 06:05: PT 13.4, INR 1.1, APTT 31.2 09/17/22 06:05: Lactic Acid 1.6 09/17/22 11:40: Fluid Glucose 92 H, Fluid Total Protein 4.8, Fluid LDH 237 09/17/22 11:40: Fluid WBC 1.014, Fluid Tot Cell Count 1.042, Fld Polynuclear WBCs # 0.094, Fld Polynuclear WBCs % 9.3, Fluid Mononuclear WBCs 0.920, Fld Mononuclear WBCs % 90.7 Micro: Microbiology 09/17/22 05:38 Nasal Secretion SARS-CoV-2 & FLU Antigen (Rapid) - Final Radiography Diagnostic Testing: Radiology Impression Chest X-Ray 09/17/22 05:35 IMPRESSION: Very large left pleural effusion with shift of the mediastinum to the right. Electronically Signed: Bin Parish MD at 5:52 EST , ADDENDUM: 09/17/22 0603 IMPRESSION: Very large left pleural effusion with shift of the mediastinum to the right. N.B. : The above Results were Read Back by Bin Parish MD to Dr. Raj Joe MD, and understanding confirmed on 09/17/2022 05:56:28 (ET). Electronically Signed: Bin Parish MD at 5:52 EST , ADDENDUM: 09/17/22 0603 IMPRESSION: undefined Chest X-Ray 09/17/22 11:44 IMPRESSION: Large left pleural effusion. Rounded opacity within the left upper lung concerning for an underlying mass. Cardiomegaly. Electronically Signed: Stacey Beckman MD at 12:59 EST , Physical Exam Const Constitutional Narrative: somnolent Orientation / Consciousness: lethargic HEENT head/scalp atraumatic and moist oral mucous membranes Head and Scalp: normocephalic Mouth: oral and palatal mucosa normal Eyes PERRL Neck no lymphadenopathy and supple Resp Resp Narrative: markedly diminished breath sounds in the left upper and lower lung elder, no wheezes or crackles. On 4L of oxygen by nasal canula Cardio regular rate, regular rhythm, S1 normal heart sound, S2 normal heart sound and no murmurs GI normal to inspection, nondistended, normoactive bowel sounds, soft to palpation, non-tender and non-distended Extremity normal to inspection, full ROM and no clubbing, cyanosis or edema Neuro Neuro Narrative: lethargic. Psych Psych Narrative: lethargic Assessment & Plan Assessment/Plan (1) Pleural effusion: (2) Mass of left lung: (3) Abnormal weight loss: PLAN: Plan #Hypoxia due to large left pleural effusion with mediastinal shift * he does have a histoyr of known lung mass; unclear if it is malignant * pulmonloogy consulted; he had a bedside thoracentesis with removal of 1.2L of fluid today * fluid analysis pending * titrate oxygen to maintain sats >90% * breathing treatment with bronchodilators * for repeat thoracentesis per pulmonology * #Alcohol use disorder * drinks about a Fifth of vodka daily and his last drink was about 2 hours prior to admission. * patient placed on alcohol withdrawal protocol with phenobarbital * oral thiamine, folic acid and multivite ordered * #Weakness and debility * PT./OT consulted. Fall precautions DVT prophylaxis: SCDs Charges/Coding Visit Charges Inpatient E&M: 04882 Subs Hosp L2
[2022-09-17 14:10] LABS: Lymphocytes 74 %; Macrophages 2 %; Mesothelial Cells 2 %; Monocytes 6 %
[2022-09-17 14:19] LABS: Auto B Fluid Analyzer BKGD Ct COUNTS W/IN LIMITS (W/IN LIMITS); Source- Body Fluid THORACENTESIS
[2022-09-17 14:20] LABS: Appearance/Body Fluid SL CLDY; Body Fluid QC Type(s) BF1Q; Color/Body Fluid YELLOW; Neutrophil (Segs) 16 %; Red Cell Count/Body Fluid 1395 /mm3
--- NOTE | 2022-09-17 14:45 | RAD_ITS ---
INDICATION: post thoracentesis #2 EXAMINATION/TECHNIQUE: X-RAY - XR Chest 2 Views COMPARISON: September 17, 2022 at 2:57 PM FINDINGS: LINES/DEVICES: None. LUNGS: There is a grossly stable appearing large left pleural effusion. No pneumothorax is visualized. There is a nodular opacity within the left upper lung. MEDIASTINUM AND CARDIOVASCULAR STRUCTURES: Cardiac silhouette not enlarged. Central airways and mediastinal contour are unremarkable. BONES AND SOFT TISSUES: Unremarkable. RAD/Chest Insp/Exp 2 View IMPRESSION: Stable large left pleural effusion, cannot exclude associated consolidation. Nodular opacity within the left upper lung may be secondary to a neoplastic process. Electronically Signed: Stacey Beckman MD at 16:21 EST ,
[2022-09-17] MEDS: Acetaminophen 325 MG Tablet 650 MG PO (23:04)
[2022-09-18] VITALS (10 sets, daily range): BP systolic 110–137; BP diastolic 61–78; PULSE 64–105; RESP 14–22; TEMP 36.6–37.1; O2SAT 91–97
[2022-09-18 04:49] LABS: Absolute Lymphocyte Count 2.68 X10^3/uL (0.83-4.51); Absolute Neutrophil Count 6.4 X10^3/uL (2.0-7.7); Basophil# 0.11 X10^3/uL; Eosinophil# 0.63 X10^3/uL; Eosinophils% 5.8 % (0-5); Hematocrit 47.9 % (40-54); Lymphocyte # 2.68 X10^3/ul (0.83-4.51); Lymphocyte % 24.6 % (19-41); Mean Corp Hgb Conc 33.4 g/dL (32-36); Mean Corpuscular Hgb 31.9 pg (27.0-32.0); Mean Corpuscular Volume 95.4 fL (80-94); Mean Platelet Vol. 10.1 fl (6.2-12.0); Monocyte# 1.09 X10^3/uL; NRBC Flagged by Analyzer 0 % (0-5); Neutrophil # 6.38 X10^3/uL (2.7-7.7); Neutrophil % 58.4 % (47-70); Platelet Count 363 K/mm3 (150-450); RBC Distribution Width CV 12.4 % (11.6-14.6); RBC Distribution Width SD 43.5 fl (35.1-43.9); Red Blood Count 5.02 M/mm3 (4.6-6.2); White Blood Count 10.9 K/mm3 (4.4-11.0)
[2022-09-18 05:23] LABS: Anion Gap 8 (5-15); BUN 16 mg/dL (7-18); BUN/Creat Ratio 21.3 RATIO (10-20); Calcium,Total 8.8 mg/dL (8.5-10.1); Chloride 104 mmol/L (98-107); Creatinine, Serum 0.75 mg/dL (0.70-1.30); EST Glomerular Filtration Rate 113 mL/min (>60); Est Glom Filt Rate - Afr Amer 136 mL/min (>60); Estimated Creatinine Clearance 97.04 ml/min; Glucose 100 mg/dL (74-106); Potassium 4.1 mmol/L (3.5-5.1); Sodium Level 137 mmol/L (136-145); Thyroid Stim Hormone (TSH) 0.93 uIU/mL (0.358-3.74)
--- NOTE | 2022-09-18 08:43 | CT_ITS ---
STUDY: CT CHEST WITHOUT CONTRAST REASON FOR EXAM: Male, 62 years old. Evaluate for malignancy/exudative effusion RADIATION DOSAGE (If Supplied By Facility): CTDIvol = ( 6.63 ) mGy, DLP = ( 230.24 ) mGycm TECHNIQUE: Transaxial imaging was performed without the administration of intravenous contrast material. Multiplanar coronal and sagittal images were reformatted. Individualized dose optimization techniques were used for this CT. COMPARISON: Comparison is made with prior study to 05/01/2013. FINDINGS: CHEST There is a 2.2 cm by 2.5 cm spiculated mass in the left upper lobe. This most likely represents a neoplastic process. Small to moderate size residual left pleural effusion with nodular appearance of the pleural surface in the anterior aspect of the left upper lobe. There is volume loss in the left upper lobe. Increased markings are seen at the left lung base suggestive of compressive atelectasis. There are calcifications of the coronary arteries. There are multiple small lymph nodes within the mediastinum, which are normal in size and morphology most compatible with reactive lymph hyperplasia. Normal hilar regions. Normal unenhanced pulmonary arteries. There is atherosclerotic calcification of the aortic arch. There is demineralization of the thoracic spine. There is no demonstrated abnormality of the visualized upper abdomen. CT/Chest without Contrast IMPRESSION: 2.2 cm x 2.5 sinus. The mass in the left upper lobe. A neoplastic process should be ruled out. Persistent left pleural effusion with nodular appearance of the pleural surface in the anterior aspect of the left upper lobe. Electronically Signed: Rd Hunt MD at 9:53 EST ,
--- NOTE | 2022-09-18 08:44 | PN.CC_ITS ---
Assessment & Plan Assessment/Plan (1) Pleural effusion: (2) Tobacco use disorder: (3) History of acute alcohol intoxication: PLAN: Plan RECOMMENDATIONS: 1. Additional therapeutic left thoracentesis today 2. Repeat CT scan following thoracentesis 3. Continue alcohol withdrawal protocol 4. Potential outpatient biopsy 5. Walking oximetry prior to discharge IMPRESSIONS: 1. Acute hypoxic respiratory insufficiency secondary to large left exudative effusion Patient with a very large left pleural effusion status postthoracentesis with 1.2 L removed yesterday. Patient will have an additional thoracentesis today. CT scan following thoracentesis is suggestive of a left upper lobe mass, but further characterization is severely limited secondary to residual fluid. Patient will likely require a definitive biopsy if cytology from pleural fluid is nondiagnostic. Patient is a very poor candidate for therapies if malignancy is found. 2. Acute alcohol withdrawal Patient currently on phenobarbital and CIWA protocol. Patient is receiving thiamine and folate. Patient is about 24 hours after last ingestion of alcohol. Anticipate patient's status will worsen before he gets better. 3. Abnormal weight loss/poor medical follow-up/poor insight Complicates care, management, recovery and prognosis. Clinical suspicion for progression of malignancy. Patient with very poor insight at this time. May be beneficial to discuss with next of kin on whether patient would want an aggressive work-up for a lung mass. There is been a suggestion the patient had a lung nodule in the past that was ignored. Subjective Subjective Patient did okay overnight. Patient's oxygen requirements and work of breathing have significantly improved following thoracentesis yesterday. Patient is not able to provide much information at this time. Patient is reporting some mild chest pain, but is unable to localize this further. Objective Data Objective Data Patient did have a thoracentesis yesterday with 1.2 L removed. This has shown an exudative, lymphocytic pattern on fluid analysis. Vital Signs: Vital Signs Temp Pulse Resp BP Pulse Ox O2 Del Method O2 Flow Rate 36.6 C 92 16 127/69 H 94 Room Air 4 09/18/22 08:01 09/18/22 08:01 09/18/22 08:01 09/18/22 08:01 09/18/22 08:01 09/18/22 08:01 09/18/22 04:50 Oxygen Flow Rate (L/min) 4 Oxygen Delivery Method Room Air Weight: 65.5 kg Body Mass Index (BMI) 20.1 Intake & Output: Intake and Output for Last 24 Hours 09/16/22 09/17/22 09/18/22 23:59 23:59 23:59 Intake Total 1500 / 1500 Output Total 1150 / 1150 450 / 450 Balance 350 / 350 -450 / -450 Lab / Micro Data Attestation: I reviewed the patient's lab results. Result Diagrams: 09/18/22 04:20 09/18/22 04:20 Labs: Laboratory Results - last 24 hr 09/17/22 05:35: Lactate Dehydrogenase 286 H 09/17/22 11:40: Fluid Glucose 92 H, Fluid Total Protein 4.8, Fluid LDH 237 09/17/22 11:40: Fluid Source THORACENTESIS, Fluid Color YELLOW, Fluid Appearance SL CLDY, Fluid WBC 1.014, Fluid RBC 1395, Fluid Tot Cell Count 1.042, Fld Polynuclear WBCs # 0.094, Fld Polynuclear WBCs % 9.3, Fluid Mononuclear WBCs 0.920, Fld Mononuclear WBCs % 90.7, Fluid Neutrophils 16, Fluid Lymphocytes 74, Fluid Monocytes 6, Fluid Macrophages 2, Fld Mesothelial Cells 2, Fl Pathologist Comment May follow, Fluid Comment 2 SEE COMMENT 09/18/22 04:20: WBC 10.9, RBC 5.02, Hgb 16.0, Hct 47.9, MCV 95.4 H, MCH 31.9, MCHC 33.4, RDW Std Deviation 43.5, RDW Coeff of Kunal 12.4, Plt Count 363, MPV 10.1, Immature Gran % (Auto) 0.200, Neut % (Auto) 58.4, Lymph % (Auto) 24.6, [place] % (Auto) 10.0, Eos % (Auto) 5.8 H, Baso % (Auto) 1.0, Absolute Neuts (auto) 6.4, Absolute Lymphs (auto) 2.68, Nucleated RBC % 0 09/18/22 04:20: Sodium 137, Potassium 4.1, Chloride 104, Carbon Dioxide 25.0, Anion Gap 8, BUN 16, Creatinine 0.75, Estim Creat Clear Calc 97.04, Est GFR (MDRD) Af Amer 136, Est GFR (MDRD) Non-Af 113, BUN/Creatinine Ratio 21.3 H, Glucose 100, Calcium 8.8, TSH 0.93 Micro: Microbiology 09/17/22 11:40 Fluid - Pleural (Lung) Gram Stain - Final 09/17/22 05:38 Nasal Secretion SARS-CoV-2 & FLU Antigen (Rapid) - Final Radiography Diagnostic Testing: Radiology Impression Chest X-Ray 09/17/22 11:44 IMPRESSION: Large left pleural effusion. Rounded opacity within the left upper lung concerning for an underlying mass. Cardiomegaly. Electronically Signed: Stacey Beckman MD at 12:59 EST , Chest CTA 09/17/22 12:18 IMPRESSION: No demonstrated pulmonary embolism or arterial dissection. 3.9 x 3.0 x 3.4 cm left upper lobe masslike opacity concerning for malignancy. Large left pleural effusion with consolidation within the left upper and lower lobes associated with partial collapse of the lobes. Atherosclerosis. Electronically Signed: Stacey Beckman MD at 14:16 EST , Chest X-Ray 09/17/22 14:45 IMPRESSION: Stable large left pleural effusion, cannot exclude associated consolidation. Nodular opacity within the left upper lung may be secondary to a neoplastic process. Electronically Signed: Stacey Beckman MD at 16:21 EST , Physical Exam Const alert Constitutional Narrative: Oriented x1. Cachectic and frail in appearance. Appears older than stated age HEENT head/scalp atraumatic and moist oral mucous membranes Head and Scalp: normocephalic Mouth: oral and palatal mucosa normal Teeth and Gingiva: poor dentition Eyes PERRL and EOMs intact bilaterally Eyes Narrative: Scleral injection noted Neck no lymphadenopathy and supple Resp Effort and Inspection: Negative for uses accessory muscles Auscultation: Negative for rales, rhonchi or wheezes Percussion: dullness Mid: left and Lower: left Cardio regular rate, regular rhythm, S1 normal heart sound, S2 normal heart sound, no murmurs, no rub and no gallops GI normal to inspection, nondistended, normoactive bowel sounds and soft to palpation Extremity normal to inspection, full ROM and no clubbing, cyanosis or edema Neuro moves all extremities and no focal motor deficits Psych Mood & Affect: flat affect Charges/Coding Visit Charges Inpatient E&M: 57600 Subs Hosp L2
--- NOTE | 2022-09-18 08:45 | RAD_ITS ---
STUDY: X-RAY CHEST REASON FOR EXAM: Male, 62 years old. Post thora TECHNIQUE: AP inspiration and expiration views. COMPARISON: Comparison is made with prior study dated 09/17/2022. FINDINGS: EKG lead to dressing. The patient is status post left thoracentesis. There is no evidence of pneumothorax. Mild degree of residual pleural-parenchymal changes persist at the left lung base. I suspect a 3.5 cm x 2.3 cm mass in the left lung apex. RAD/Chest Insp/Exp 2 View IMPRESSION: Status post left thoracentesis. There is no evidence of pneumothorax. Small residual pleural parenchymal changes in the left hemithorax. 3.5 cm x 2.3 cm spiculated nodule in the left upper lobe. Electronically Signed: Rd Hunt MD at 9:37 EST ,
--- NOTE | 2022-09-18 08:48 | NURSING ---
to radiology for thoracentesis
--- NOTE | 2022-09-18 09:00 | FLU_PTH ---
PATIENT: SHANTI MOLINA LOC: [facility] U#:[id number] AGE/SX: 62/M ROOM: [facility] RE09/17/[address]: Dr. Miguel A Guevara MD : 1960 BED: 1 DIS: 09/19/2022 SPEC #: [id number] RECD: 09/18/22 09:15 STATUS: SALO REQ #: [id number] URBANO: 09/18/22 09:[address]: Juventino Carson DEPT: CYTOLOGY RECD BY: Cinda Garcia ENTERED: 09/18/22 11:16 SP TYPE: Fluid OTHR DR: MD Dr. Juventino Seals MD Dr. Lee Ann Baggott, MD Dr. Nana Yaa Koram, MD Dr. Nicholas F Kotsonis, MD Tissues: THORACIC FLUID Procedures: Special Stain Group II Surgery Specimen Level IV Cytospin Fluid Comments: @ Ordering doctor for SSII edited from to @ by RGOCONSTANCE at 09/18/22 140 @ Ordering doctor for CYSPIN edited from to @ by RGOOD at 09/18/22 1406 @ Submitting doctor edited from to @ by RGOOD at 09/18/22 140 @ Ordering doctor for SSII edited from to @ by RGOCONSTANCE at 09/18/22 1408 @ Ordering doctor for CYSPIN edited from to @ by RGOOD at 09/18/22 1408 @ Submitting doctor edited from to @ by RGOOD at 09/18/221407 HEADER OPERATION: Ultrasound-guided left thoracentesis PRE-OP DIAGNOSIS: Left thoracentesis TISSUE SUBMITTED: Thoracentesis fluid for cytology DIAGNOSIS CYTOLOGY Thoracentesis fluid for cytology (cytospin and cell block): Positive for malignant cells consistent with adenocarcinoma. AM:angelo 09/19/2022 COMMENT Please correlate with addtional cytology specimen ([id number]) with similar morphologic features. This case has been reviewed in consultation with Dr. Alfredo who concurs with the above diagnosis. CYTOLOGY STUDY Slides are reviewed. CYTOLOGY GROSS Received is 100 ml of yellow cloudy fluid labeled with the patient's name and and designated per the requisition as thoracentesis. Submitted for cytology preparation including cell block. / angelo 09/18/2022 TC:0 CPT: 28855, 38456
[2022-09-18 09:17] LABS: Cytology, Body Fluid / CSF SEE PATHOLOGY REPORT
[2022-09-18] MEDS: Multivitamins,Therapeutic Tablet 1 TABLET PO (09:31)
[2022-09-18] MEDS: Folic Acid 1 MG Tablet PO (09:31)
[2022-09-18] MEDS: Thiamine Hydrochloride 100 MG Tablet PO (09:32)
[2022-09-18] MEDS: Fluticasone 0.05% 1 SPRAY NASAL.SRY 2 SPRAY NASAL (10:13)
--- NOTE | 2022-09-18 14:49 | CASEMGMT ---
DERRELL BOUCHER Face to Face with patient for initial transition planning/care coordination assessment. DERRELL BOUCHER introduced self and role at [facility]. Patient lying in bed, alert and oriented. Patient willing to participate in assessment and is able to answer all questions appropriately. Care providers, pharmacy, and demographics verified. Patient wishes to discharge home, denies need for home health at this time. Patient states he has no further needs or concerns at this time. CM to follow for discharge planning needs that may arise. PCP: [facility] Specialists: none Preferred Pharmacy: [facility] Insurance: [employer] Prescription Benefit: yes Living Will/HPOA: none LNOK: mother, son Living Arrangements: Patient lives with a roommate in a first floor apartment with 3 steps and railing to enter the home. Patient states he is independent at home. Transportation: walks, discuss [facility] van and transport through [facility] for appts. DME/HHC: Patient denies DME in the home. No previous HHC or SNF. Patient states he smokes 1/2 PPD of cigarettes, drink 1/5 of vodka daily, and uses meth 3 times per week. DERRELL BOUCHER inquired if patient would like resources for cessation, patient declined. Disposition Plan: Patient to discharge home with family support and follow-up plans in place. Mere DASILVA, RN, CM
--- NOTE | 2022-09-18 15:26 | DCINST_ITS ---
Discharge Instructions Diet Discharge Diet: No restrictions Activity Discharge Activity: Return to Normal Activity Dressing / Incision Call your doctor if you observe: Fever of 101 or Higher, Shortness of breath, Dizziness, Fainting spells, Swelling in the ankles, Chest pain and Increased palpitations (irregular heartbeat) Follow Up Care Test Results: Test results from this visit will be discussed in further detail at your follow- up appointment, if applicable. Discharge Plan Admission Admit Date/Time: 09/17/22 06:13 Attending Provider: Miguel A Guevara Primary Care Provider: Rubia Coffey Consulting Providers: Juventino Carson ; Polo Monte ; Elvie Núñez Discharge Orders/Prescriptions Prescriptions: No Action NK Referrals / Follow Up: Rubia Coffey MD [Primary Care Provider] - Within 1 Week Disposition Disposition (needs filled in before D/C Order can be placed): Home, Self Care
--- NOTE | 2022-09-18 15:31 | DS.PCM_ITS ---
Providers Date of Admission: 09/17/22 Primary Care Physician: Dr. Rubia Coffey MD Consultations 09/17/22 07:42 Consult: Flooring Installer / Pulmonary Medicine Routine Consulting Provider: Polo Monte Reason for Consult: Left sided pleural effusion EMERGENT Consult: No MD Notified: Yes Date Notified: 09/17/22 Time Notified: 06:22 Method of Notification: ED Physician Initiated Reason For Visit: LEFT PLEURAL EFFUSION Diagnosis Discharge Diagnosis (1) Pleural effusion: Status: Acute Code(s): J90 - Pleural effusion, not elsewhere classified (2) Tobacco use disorder: Status: Chronic Code(s): F17.200 - Nicotine dependence, unspecified, uncomplicated (3) History of acute alcohol intoxication: Status: Chronic Code(s): Z87.898 - Personal history of other specified conditions Medications at Discharge Home Medications NK 09/17/22 Hospital Course Operations None Procedures Thoracentesis Summary of Care Provided Minutes Spent on Discharge: 40 Hospital Course: Per HPI: SHANTI MOLINA, is a 62 M with a significant history of lung mass, alcoholism and tobacco abuse who presents emergency department with 1 week history of progressively worsening shortness of breath.? Associated with his symptoms is his upper respiratory symptoms of sneezing, runny nose and productive cough.? Also he reports weakness with difficulty in ambulation.? Reportedly he has been wobbling. Hospital Course: 1. Hypoxia secondary to large left pleural effusion with mediastinal shift/left upper lobe lung mass/tobacco abuse?62-year-old male presents to the hospital with weakness and debility as well as shortness of breath. He was found to have a left large pleural effusion and pulmonology was able to do a bedside thoracentesis where they removed 1.2 L of fluid that was sent off for evaluation. Unfortunately fluid evaluation came back positive as an exudative effusion consistent with likely malignancy in his left upper lobe. Apparently he was aware that he had a nodule there but that it had grown significantly was new. He did have a repeated thoracentesis today and radiology where he had a lmost 2 L removed. He is no longer hypoxic and does not require any oxygen with ambulation. He does feel much better and he was hoping to go home today. I discussed with him the possibility for discharge and he expressed understanding of the risk benefits of going home and he would like to go home today. I discussed with him the possibility of keeping him an extra day but he says that he is getting around okay and would rather go home which is the reason behind his early discharge. Of note he does drink alcohol but his CIWA was 0 and he has not received any Ativan while here. I do recommend that he follow-up with his PCP in 3 to 5 days to obtain cytology of his fluid and be directed to appropriate next steps. I discussed his desire to discharge with pulmonology who felt that he was okay for discharge at this time given his lack of oxygen requirement and no pneumothorax seen on the post-thoracentesis x-ray today. Physical Exam Narrative General: Alert, Oriented x3, Cooperative, No apparent distress HEENT: Atraumatic, PERRLA, EOMI, Normocephalic Oral: Moist Mucosa Neck: Supple, No JVD Lungs: Diminished on left greater than right, Normal air movement, No rhonchi, No wheeze, No rales Cardiovascular: Regular rate, Regular Rhythm, Normal S1, Normal S2, No murmurs Abdomen: Soft, Non Tender, Non-Distended, No Hepato-splenomegaly Extremities: No edema, Capillary Refill Less than 3 Seconds Skin: No rashes, No breakdown Musculoskeletal: No Tenderness to Palpation of Joints or Extremities Neurological: Cranial nerves II-XII grossly intact, Motor Exam 5/5 strength throughout, Sensory exam intact to light touch and pain Psych/Mental Status: Flat affect Weight / BMI Weight Weight: 144 lb 6.444 oz Body Mass Index (BMI) 20.1 ABG / Lab / Microbiology Data Result Diagrams: 09/18/22 04:20 09/18/22 04:20 Laboratory: Laboratory Results - last 24 hr 09/18/22 04:20: WBC 10.9, RBC 5.02, Hgb 16.0, Hct 47.9, MCV 95.4 H, MCH 31.9, MCHC 33.4, RDW Std Deviation 43.5, RDW Coeff of Kunal 12.4, Plt Count 363, MPV 10.1, Immature Gran % (Auto) 0.200, Neut % (Auto) 58.4, Lymph % (Auto) 24.6, [place] % (Auto) 10.0, Eos % (Auto) 5.8 H, Baso % (Auto) 1.0, Absolute Neuts (auto) 6.4, Absolute Lymphs (auto) 2.68, Nucleated RBC % 0 09/18/22 04:20: Sodium 137, Potassium 4.1, Chloride 104, Carbon Dioxide 25.0, Anion Gap 8, BUN 16, Creatinine 0.75, Estim Creat Clear Calc 97.04, Est GFR (MDRD) Af Amer 136, Est GFR (MDRD) Non-Af 113, BUN/Creatinine Ratio 21.3 H, Glucose 100, Calcium 8.8, TSH 0.93 Microbiology: Microbiology 09/17/22 11:40 Fluid - Pleural (Lung) Gram Stain - Final 09/17/22 11:40 Fluid - Pleural (Lung) Body Fluid Culture - Preliminary No growth-Final to follow 09/17/22 07:00 Urine, Clean Catch Urine Culture - Preliminary Culture exhibits no growth. 09/17/22 05:38 Nasal Secretion SARS-CoV-2 & FLU Antigen (Rapid) - Final Radiography Diagnostic Testing: Radiology Impression Thoracentesis Ultrasound 09/17/22 07:42 IMPRESSION: Ultrasound-guided left thoracentesis. Electronically Signed: Rd Hunt MD at 10:01 EST , Chest X-Ray 09/17/22 11:44 IMPRESSION: Large left pleural effusion. Rounded opacity within the left upper lung concerning for an underlying mass. Cardiomegaly. Electronically Signed: Stacey Beckman MD at 12:59 EST Reading Location ID and State: [facility] / [place] Tel , Service support , Chest X-Ray 09/17/22 14:45 IMPRESSION: Stable large left pleural effusion, cannot exclude associated consolidation. Nodular opacity within the left upper lung may be secondary to a neoplastic process. Electronically Signed: Stacey Beckman MD at 16:21 EST , Chest CT 09/18/22 08:43 IMPRESSION: 2.2 cm x 2.5 sinus. The mass in the left upper lobe. A neoplastic process should be ruled out. Persistent left pleural effusion with nodular appearance of the pleural surface in the anterior aspect of the left upper lobe. Electronically Signed: Rd Hunt MD at 9:53 EST , Chest X-Ray 09/18/22 08:45 IMPRESSION: Status post left thoracentesis. There is no evidence of pneumothorax. Small residual pleural parenchymal changes in the left hemithorax. 3.5 cm x 2.3 cm spiculated nodule in the left upper lobe. Electronically Signed: Rd Hunt MD at 9:37 EST , D/C Instructions Discharge Diet: No restrictions Call your doctor if you observe: Fever of 101 or Higher, Shortness of breath, Dizziness, Fainting spells, Swelling in the ankles, Chest pain and Increased palpitations (irregular heartbeat) Meaningful Use Info Meaningful Use Diagnoses (Choose all that apply): None applicable Discharge Plan Admission Admit Date/Time: 09/17/22 06:13 Attending Provider: Miguel A Guevara Primary Care Provider: Rubia Coffey Consulting Providers: Juventino Carson ; Polo Monte ; Elvie Núñez Discharge Orders/Prescriptions Prescriptions: No Action NK Referrals / Follow Up: Rubia Coffey MD [Primary Care Provider] - Within 1 Week Disposition Disposition (needs filled in before D/C Order can be placed): Home, Self Care Charges/Coding Visit Charges Inpatient E&M: 34008 Disch Hosp >30min
--- NOTE | 2022-09-18 18:47 | NURSING ---
PT UNABLE TO OBTAIN RIDE HOME TONIGHT. PT REQUESTING TO BE DISCHARGED TOMORROW AM. STATES OK FOR PT TO STAY TONIGHT AND LEAVE IN THE AM.
[2022-09-19 03:11] VITALS: BP 146/79; PULSE 86; RESP 18; TEMP 36.7; O2SAT 94
[2022-09-19 07:13] LABS: Anion Gap 8 (5-15); BUN 14 mg/dL (7-18); BUN/Creat Ratio 21.8 RATIO (10-20); Chloride 105 mmol/L (98-107); Creatinine, Serum 0.64 mg/dL (0.70-1.30); EST Glomerular Filtration Rate 135 mL/min (>60); Est Glom Filt Rate - Afr Amer 163 mL/min (>60); Estimated Creatinine Clearance 113.72 ml/min; Glucose 115 mg/dL (74-106); Potassium 4.4 mmol/L (3.5-5.1); Sodium Level 136 mmol/L (136-145)
[2022-09-19] MEDS: Thiamine Hydrochloride 100 MG Tablet PO (07:52)
[2022-09-19] MEDS: Folic Acid 1 MG Tablet PO (07:52)
[2022-09-19] MEDS: Multivitamins,Therapeutic Tablet 1 TABLET PO (07:52)
--- NOTE | 2022-09-19 07:54 | PN.HOSP_ITS ---
Reason for Visit Reason for Visit: Diagnoses Alcohol dependence, uncomplicated (09/17/22) Nicotine dependence, unspecified, uncomplicated (09/17/22) Pleural effusion, not elsewhere classified (09/17/22) Abnormal weight loss (09/17/22) Other nonspecific abnormal finding of lung field (09/17/22) Personal history of other specified conditions (09/17/22) Subjective Subjective This is a progress note for 09/18/2022 he was supposed to be discharged but could not find a ride: Doing well, no issues overnight. Breathing much better now that he has had an extra 2 L taken off of his left lung which is an exudative effusion Objective Data Objective Data Vital Signs: Vital Signs Temp Pulse Resp BP Pulse Ox O2 Del Method O2 Flow Rate 98.1 F 86 18 146/79 H 94 Room Air 4 09/19/22 03:11 09/19/22 03:11 09/19/22 03:11 09/19/22 03:11 09/19/22 03:11 09/19/22 06:47 09/18/22 04:50 Oxygen Flow Rate (L/min) 4 Oxygen Delivery Method [4] Room Air Oxygen Delivery Method [3] Room Air Oxygen Delivery Method [2] Room Air Oxygen Delivery Method [1 ( Room Air Initial Baseline)] Oxygen Delivery Method Room Air Weight: 144 lb 6.444 oz Body Mass Index (BMI) 20.1 Intake & Output: Intake and Output for Last 24 Hours 09/18/22 09/19/22 09/20/22 03:59 03:59 03:59 Intake Total 1500 / 1500 350 / 350 350 / 350 Output Total 1150 / 1150 2800 / 2800 400 / 400 Balance 350 / 350 -2450 / -2450 -50 / -50 Lab / Micro Data Result Diagrams: 09/18/22 04:20 09/19/22 06:15 Labs: Laboratory Results - last 24 hr 09/19/22 06:15: Sodium 136, Potassium 4.4, Chloride 105, Carbon Dioxide 23.0, Anion Gap 8, BUN 14, Creatinine 0.64 L, Estim Creat Clear Calc 113.72, Est GFR (MDRD) Af Amer 163, Est GFR (MDRD) Non-Af 135, BUN/Creatinine Ratio 21.8 H, Glucose 115 H, Calcium 9.0 Micro: Microbiology 09/17/22 11:40 Fluid - Pleural (Lung) Gram Stain - Final 09/17/22 11:40 Fluid - Pleural (Lung) Body Fluid Culture - Preliminary No growth-Final to follow 09/17/22 07:00 Urine, Clean Catch Urine Culture - Preliminary Culture exhibits no growth. 09/17/22 05:38 Nasal Secretion SARS-CoV-2 & FLU Antigen (Rapid) - Final Radiography Diagnostic Testing: Radiology Impression Thoracentesis Ultrasound 09/17/22 07:42 IMPRESSION: Ultrasound-guided left thoracentesis. Electronically Signed: Rd Hunt MD at 10:01 EST , Chest CT 09/18/22 08:43 IMPRESSION: 2.2 cm x 2.5 sinus. The mass in the left upper lobe. A neoplastic process should be ruled out. Persistent left pleural effusion with nodular appearance of the pleural surface in the anterior aspect of the left upper lobe. Electronically Signed: Rd Hunt MD at 9:53 EST , Chest X-Ray 09/18/22 08:45 IMPRESSION: Status post left thoracentesis. There is no evidence of pneumothorax. Small residual pleural parenchymal changes in the left hemithorax. 3.5 cm x 2.3 cm spiculated nodule in the left upper lobe. Electronically Signed: Rd Hunt MD at 9:37 EST , Physical Exam Narrative General: Alert, Oriented x3, Cooperative, No apparent distress HEENT: Atraumatic, PERRLA, EOMI, Normocephalic Oral: Moist Mucosa Neck: Supple, No JVD Lungs: Diminished on left greater than right, Normal air movement, No rhonchi, No wheeze, No rales Cardiovascular: Regular rate, Regular Rhythm, Normal S1, Normal S2, No murmurs Abdomen: Soft, Non Tender, Non-Distended, No Hepato-splenomegaly Extremities: No edema, Capillary Refill Less than 3 Seconds Skin: No rashes, No breakdown Musculoskeletal: No Tenderness to Palpation of Joints or Extremities Neurological: Cranial nerves II-XII grossly intact, Motor Exam 5/5 strength throughout, Sensory exam intact to light touch and pain Psych/Mental Status: Flat affect Assessment & Plan Assessment/Plan (1) Pleural effusion: (2) Tobacco use disorder: (3) History of acute alcohol intoxication: PLAN: Plan #Hypoxia due to large left pleural effusion with mediastinal shift * he does have a histoyr of known lung mass; unclear if it is malignant * pulmonloogy consulted; he had a bedside thoracentesis with removal of 1.2L of fluid followed by a thoracentesis on 09/18/2022 with almost 2 L taken out * Exudative effusion consistent with cancer * Not requiring any oxygen currently on ambulation or at rest * breathing treatment with bronchodilators #Alcohol use disorder * drinks about a Fifth of vodka daily and his last drink was about 2 hours prior to admission. * Denies any signs of withdrawal * patient placed on alcohol withdrawal protocol with phenobarbital * oral thiamine, folic acid and multivite ordered #Weakness and debility * PT./OT consulted. Fall precautions DVT: SCDs Charges/Coding Visit Charges Inpatient E&M: 23839 Subs Hosp L2
[2022-09-19 08:05] VITALS: O2SAT 93
--- NOTE | 2022-09-19 08:30 | PCM.PN.INT ---
Assessment & Plan Assessment/Plan (1) Pleural effusion: (2) Tobacco use disorder: (3) History of acute alcohol intoxication: PLAN: Plan RECOMMENDATIONS: 1. Await pleural fluid cytology 2. Potential CT-guided biopsy if pleural fluid cytology is negative 3. Continue alcohol withdrawal protocol 4. Follow-up with nurse practitioner 1 week after discharge 5. Walking oximetry prior to discharge IMPRESSIONS: 1. Acute hypoxic respiratory insufficiency secondary to large left exudative effusion Patient with a very large left pleural effusion status postthoracentesis with a total of [address] scan does show a sizable mass in the left upper lobe. Very clear with the patient that there is is concerning for malignancy, but this has not been confirmed. Patient will likely require a definitive biopsy if cytology from pleural fluid is nondiagnostic. Patient is a very poor candidate for therapies if malignancy is found. Patient should follow-up with nurse practitioner after a week 2. Acute alcohol withdrawal Patient currently on phenobarbital and CIWA protocol. Patient is receiving thiamine and folate. Patient is about 24 hours after last ingestion of alcohol. Anticipate patient's status will worsen before he gets better. 3. Abnormal weight loss/poor medical follow-up/poor insight Complicates care, management, recovery and prognosis. Clinical suspicion for progression of malignancy. Patient with very poor insight at this time. Patient appears to convey that he will not be aggressive with any lung mass. There is been a suggestion the patient had a lung nodule in the past that was ignored. Subjective Subjective Patient did well overnight. Discharge reportedly delayed secondary to transportation issues. Nursing is not reporting any increased agitation this morning. Patient asking more insightful questions today such as let us get to the point. Is this cancer? Objective Data Objective Data Vital Signs: Vital Signs Temp Pulse Resp BP Pulse Ox O2 Del Method O2 Flow Rate 36.7 C 86 18 146/79 H 93 Room Air 4 09/19/22 03:11 09/19/22 03:11 09/19/22 03:11 09/19/22 03:11 09/19/22 08:05 09/19/22 08:05 09/18/22 04:50 Oxygen Flow Rate (L/min) 4 Oxygen Delivery Method [4] Room Air Oxygen Delivery Method [3] Room Air Oxygen Delivery Method [2] Room Air Oxygen Delivery Method [1 ( Room Air Initial Baseline)] Oxygen Delivery Method Room Air Weight: 65.5 kg Body Mass Index (BMI) 20.1 Intake & Output: Intake and Output for Last 24 Hours 09/17/22 09/18/22 09/19/22 23:59 23:59 23:59 Intake Total 1500 / 1500 700 / 700 Output Total 1150 / 1150 2600 / 2800 600 / 600 Balance 350 / 350 -2600 / -2450 100 / 100 Lab / Micro Data Attestation: I reviewed the patient's lab results. Result Diagrams: 09/18/22 04:20 09/19/22 06:15 Labs: Laboratory Results - last 24 hr 09/19/22 06:15: Sodium 136, Potassium 4.4, Chloride 105, Carbon Dioxide 23.0, Anion Gap 8, BUN 14, Creatinine 0.64 L, Estim Creat Clear Calc 113.72, Est GFR (MDRD) Af Amer 163, Est GFR (MDRD) Non-Af 135, BUN/Creatinine Ratio 21.8 H, Glucose 115 H, Calcium 9.0 Micro: Microbiology 09/17/22 06:00 Blood Culture (Wb) - Anticubital Right Blood Culture - Preliminary No growth in 48 hours. 09/17/22 06:05 Blood Culture (Wb) - Anticubital Left Blood Culture - Preliminary No growth in 48 hours. 09/17/22 11:40 Fluid - Pleural (Lung) Gram Stain - Final 09/17/22 11:40 Fluid - Pleural (Lung) Body Fluid Culture - Preliminary No growth-Final to follow 09/17/22 11:40 Fluid - Pleural (Lung) Anaerobic Culture - Preliminary No growth in 48 hours. 09/17/22 07:00 Urine, Clean Catch Urine Culture - Preliminary Culture exhibits no growth. 09/17/22 05:38 Nasal Secretion SARS-CoV-2 & FLU Antigen (Rapid) - Final Radiography Diagnostic Testing: Radiology Impression Thoracentesis Ultrasound 09/17/22 07:42 IMPRESSION: Ultrasound-guided left thoracentesis. Electronically Signed: Rd Hunt MD at 10:01 EST , Chest CT 09/18/22 08:43 IMPRESSION: 2.2 cm x 2.5 sinus. The mass in the left upper lobe. A neoplastic process should be ruled out. Persistent left pleural effusion with nodular appearance of the pleural surface in the anterior aspect of the left upper lobe. Electronically Signed: Rd Hunt MD at 9:53 EST , Chest X-Ray 09/18/22 08:45 IMPRESSION: Status post left thoracentesis. There is no evidence of pneumothorax. Small residual pleural parenchymal changes in the left hemithorax. 3.5 cm x 2.3 cm spiculated nodule in the left upper lobe. Electronically Signed: Rd Hunt MD at 9:37 EST , Physical Exam Narrative A total of 3 L has been removed from the left chest over the course of the hospitalization Const alert Constitutional Narrative: Oriented x1. Cachectic and frail in appearance. Appears older than stated age HEENT head/scalp atraumatic and moist oral mucous membranes Eyes PERRL and EOMs intact bilaterally Eyes Narrative: Scleral injection improved Neck no lymphadenopathy and supple Resp Effort and Inspection: Negative for uses accessory muscles Auscultation: Negative for rales, rhonchi or wheezes Percussion: dullness Lower: left (Improved) Cardio regular rate, regular rhythm, S1 normal heart sound, S2 normal heart sound, no murmurs, no rub and no gallops GI normal to inspection, nondistended, normoactive bowel sounds and soft to palpation Extremity normal to inspection, full ROM and no clubbing, cyanosis or edema Neuro moves all extremities and no focal motor deficits Psych cooperative Mood & Affect: flat affect Charges/Coding Visit Charges Inpatient E&M: 51689 Subs Hosp L2
[2022-09-19 09:07] VITALS: BP 121/89; PULSE 113; RESP 20; TEMP 37.2; O2SAT 97
[2022-09-19] MEDS: Fluticasone 0.05% 1 SPRAY NASAL.SRY 2 SPRAY NASAL (09:08)
[2022-09-19 13:19] LABS: Pathologist Comment/Body Fluid Reviewed
[2022-09-19 18:32] LABS: pH, Body Fluid 11254 7.2 (Not Estab.)
== END 2022-09-19 09:22 | disposition home or self-care (01) | DRG 136 ==
LOC: ED 05:44 → PCU 07:31
PROVIDERS: Internal Medicine; Internal Medicine Critical Care Medicine; Admitting Provider Hospitalist; Emergency Provider Emergency Medicine; PCP Internal Medicine; Visit Provider Family Medicine
DX: C34.12 Malignant neoplasm of upper lobe, left bronchus or lung (principal); J44.9 Chronic obstructive pulmonary disease, unspecified; F10.20 Alcohol dependence, uncomplicated; E86.0 Dehydration; J91.0 Malignant pleural effusion; F17.210 Nicotine dependence, cigarettes, uncomplicated; Y90.0 Blood alcohol level of less than 20 mg/100 ml; Z91.198 Patient's noncompliance with other medical treatment and regimen for other reason; R94.31 Abnormal electrocardiogram [ECG] [EKG]; I45.9 Conduction disorder, unspecified
CPT/HCPCS: 32555; 36415; 71045; 71046; 71250; 71275; 80048; 80053; 82077; 82945; 83605; 83615; 83735; 83986; 84157; 84443; 84484; 85025; 85610; 85730; 87040; 87070; 87075; 87086; 87205; 87428; 88108; 88305; 88313; 88341; 88342; 89050; 93005; 96374; 96375; 97162; 97166; 99221; 99285; Q9967; A4216; G0378; J2405

== ENCOUNTER 2022-10-08 06:32 | Observation (INO) | payer MEDICAID, SELFPAY ==
[2022-10-08] VITALS (13 sets, daily range): BP systolic 129–149; BP diastolic 64–95; PULSE 80–108; RESP 16–22; TEMP 36.6–37.1; O2SAT 92–98; BMI 20.2
--- NOTE | 2022-10-08 06:57 | EKG12_ITS ---
Test Reason : CP Blood Pressure : / mmHG Vent. Rate : 097 BPM Atrial Rate : 097 BPM P-R Int : 134 ms QRS Dur : 134 ms QT Int : 378 ms P-R-T Axes : 054 083 039 degrees QTc Int : 480 ms Normal sinus rhythm Non-specific intra-ventricular conduction block Abnormal ECG Confirmed by RAN ALBA, VEENA ([id number]), sports editor YRN BAHENA ([id number]) on 10/09/2022 2:38:30 PM Referred By: RADHA Confirmed By:VEENA TONG MD
--- NOTE | 2022-10-08 06:57 | CT_ITS ---
STUDY: CTA CHEST REASON FOR EXAM: Male, 62 years old. SOB, high risk PE RADIATION DOSAGE (If Supplied By Facility): CTDIvol = ( 7 ) mGy, DLP = ( 293 ) mGycm TECHNIQUE: The examination was performed with the intravenous administration of 100mL Isovue-370. Post-processing of the angiographic images was performed, with multiplanar reformation and 3D reconstruction. Individualized dose optimization techniques were used for this CT. COMPARISON: September 18, 2022 FINDINGS: Normal enhancement of the main pulmonary artery and right and left pulmonary arteries. Normal enhancement of the bilateral peripheral pulmonary arteries. There is no demonstrated pulmonary embolism. There is atherosclerotic calcification of the aortic arch with tortuosity. There is no demonstrated aortic dissection. There are calcifications of the coronary arteries. Normal hilar regions. Normal visualized trachea and bronchi. There is 3.5 x 3.0 cm left upper lobe mass. There is worsening left lung consolidation with only a small amount of aerated lung at the upper chest. There is large left pleural effusion with worsening. The mediastinum is shifted to the right. Normal chest wall structures. There are degenerative changes of the spine. Normal visualized upper abdomen. CT/CTA Chest W/WO Contrast IMPRESSION: CTA chest examination, without a demonstrated pulmonary embolism or arterial dissection. Worsening left lung consolidation and pleural effusion. Left upper lobe mass. Electronically Signed: Km Nogueira MD at 8:29 EST ,
--- NOTE | 2022-10-08 06:57 | RAD_ITS ---
STUDY: X-RAY CHEST REASON FOR EXAM: Male, 62 years old. SOB TECHNIQUE: Single AP portable view of the chest. COMPARISON: September 18, 2022 FINDINGS: There are monitoring devices. There is worsening left-sided consolidation and pleural effusion with near total opacification and small region of aeration at the left upper chest. The mediastinum is shifted to the right. There is no demonstrated pleural abnormality. Normal size heart. Normal visualized pulmonary arteries. Normal visualized aortic arch and descending thoracic aorta. Normal visualized thoracic spine. Normal visualized ribs, clavicles, and shoulders. There is no demonstrated abnormality of the visualized soft tissue structures of the upper abdomen. RAD/Chest 1 View (Portable) IMPRESSION: Worsening left lung consolidation and pleural effusion with shift of the mediastinum to the right. Electronically Signed: Km Nogueira MD at 8:23 EST ,
--- NOTE | 2022-10-08 06:59 | ED.VIS.CHEST ---
HPI History of Present Illness Chief Complaint: Chest Pain Informant: patient Narrative Narrative: Patient is a 62-year-old male with recent diagnosis of left upper lung mass with presumed malignant effusion as well as alcoholism presenting with chest pain and shortness of breath. Patient history slightly limited as he appears to be intoxicated. He is pointing to his chest and saying that he has been having chest pain for the past few weeks has been more short of breath for about 2 weeks. States it feels like what brought him in to the ER month ago when he was diagnosed with his lung mass. He tells me he has not been able to follow-up outpatient because he has not been able to get an appointment. Chart review shows that patient was discharged home on room air. He denies any swelling in his legs. States he does have a cough that is nonproductive. Does not report any fever. [facility] Medical History (Updated 10/08/22 @ 13:[address] Renay Grover DO) Alcoholism Depression HTN (hypertension) Lung cancer Home Medications NK 09/17/22 [History Last Taken Unknown] Allergy/AdvReac Type Severity Reaction Status Date / Time Penicillins Allergy Angioedema Verified 06/04/22 11:29 Family History Other Cancer Surgical History H/O foot surgery Social History Smoking Status: Current every day smoker tobacco type: cigarettes alcohol intake: current ROS ROS ED Constitutional Constitutional ED: Denies fever(s) Cardiovascular Cardiovascular: Reports as per HPI and chest pain Respiratory/Chest Respiratory/Chest: Reports cough and dyspnea Gastrointestinal Gastrointestinal: Denies abdominal pain, nausea or vomiting Musculoskeletal Musculoskeletal: Denies arthralgias or myalgias Integumentary Denies rash Neurologic Neurologic: Denies headache(s) Hematologic/Lymphatic Hematologic/Lymphatic: Denies easy bleeding or easy bruising EXAM Physical Exam Const Vital Signs: 10/08/22 06:35 10/08/22 07:33 10/08/22 08:00 Temperature 97.8 F Temperature Source Oral Pulse Rate 101 H 103 H 108 H Respiratory Rate 17 16 16 Blood Pressure 136/95 H 144/78 H 146/64 H Blood Pressure Mean 108 100 91 Pulse Ox 94 94 97 Oxygen Delivery Method Room Air Room Air Room Air Oxygen Flow Rate (L/min) 10/08/22 09:00 10/08/22 10:51 10/08/22 11:20 Temperature Temperature Source Pulse Rate 96 81 89 Respiratory Rate 22 H 22 H 22 H Blood Pressure 140/76 H 147/70 H 149/85 H Blood Pressure Mean 97 95 106 Pulse Ox 98 97 96 Oxygen Delivery Method Room Air Nasal Cannula Nasal Cannula Oxygen Flow Rate (L/min) 2 2 10/08/22 12:02 Temperature 97.8 F Temperature Source Temporal Pulse Rate 86 Respiratory Rate 16 Blood Pressure 142/78 H Blood Pressure Mean 99 Pulse Ox 94 Oxygen Delivery Method Nasal Cannula Oxygen Flow Rate (L/min) 2 Positive well nourished Constitutional Narrative: Patient clinically appears intoxicated. No acute distress. Intermittently moaning. General Appearance ED: Negative for pallor HEENT Reports moist mucous membranes normocephalic and atraumatic Eyes PERRL and EOMs intact bilaterally General Eye ED: Negative for scleral icterus Neck supple and no JVD Neck Narrative: Trachea is midline. Chest Wall inspection of chest normal Chest Narrative: No chest wall tenderness to palpation. Patient has dullness to percussion of the left chest wall. Resp normal respiratory effort Resp Narrative: Absent breath sounds on the left. Clear breath sounds on the right. Effort and Inspection: pain with movement Cardio regular rhythm and no murmurs Rate: tachycardic Peripheral Pulses: pulses 2+ throughout GI normal to inspection, nondistended, normoactive bowel sounds and soft to palpation Back/Spine Back/Spine Narrative: Mild diffuse tenderness palpation of the left thoracic back Extremity normal to inspection General Extremety ED: Negative for edema General Extremity: Negative for edema Neuro oriented x3 Neuro Narrative: . Clinically intoxicated and slightly somnolent however arouses to verbal stimuli and does answer questions appropriately but with a slightly slurred speech Sensorium / Orientation: awake and alert Psych mental status grossly normal Skin no rashes or lesions noted and no wounds General Skin Exam: Negative for jaundice or pallor Heart Score History: Slightly/Non-Suspicious ECG: Nonspecific Repolarization Age: >45 - <65 years Risk Factors: 1 or 2 Risk Factors Score: 3 MDM MDM MDM Narrative Medical decision making narrative: Patient's evaluated for shortness of breath and chest pain. Low suspicion for ischemia this is been going on for 2 weeks and to do more associated with likely recurrence of his pleural effusion as patient has no breath sounds on the right side. As patient recent hospitalization is tachycardic and has likely lung malignancy differential also includes pulmonary emboli. Patient is high risk and CTA will be obtained. This also get better visualization of the lungs. I suspect patient is clinically intoxicated so is not given anything sedating for pain at this time and I will check an alcohol level to confirm. Patient admits alcohol level is only 53. He is reevaluated his mentation does seem slightly improved. ABGs ordered however is then canceled as decision was made to perform a thoracentesis. On repeat evaluation patient's mentation has improved slightly. Case is discussed with pulmonary medicine on-call, Dr. Malagon, who recommends bedside thoracentesis and if patient is able to outpatient follow-up in the next few days. He is unable to perform this so I will. We do not currently have interventional radiology. Patient is given a dose of morphine for pain control. Chest x-ray shows a significant pleural effusion. I did attempt to contact patient's son, Zaheer, however the phone number is busy and I am not able to get through. Patient is more comfortable after receiving dose of morphine. Thoracentesis is performed, see procedure note. Repeat chest x-ray does show improvement of his pleural effusion however patient is ambulated and still desaturates to 88%. Because of this he will require admission and I question if he will need a repeat thoracentesis tomorrow, especially as he had 3.2 L off during his last hospitalization. Case is discussed with admitting physician, Dr. Guevara, who is agreeable this plan of care. He will also discussed palliative/hospice treatment/interventions with this patient. History & Record Review Discussion w/independent historian: EMS personnel (Son on the ground complaining of worsening shortness of breath and chest pain. States has been drinking to deal with the pain. Please on 2 L of oxygen for comfort but was 95% on room air per EMS.) Additional record(s) reviewed:: Prior inpatient record (Discharge summary from 09/18/2022-placed on CIWA protocol, had initial thoracentesis removing 1.2 L and then repeat thoracentesis on discharge day with 2 L removed. This resolved patient's pain and hypoxia. Cytology pending at that time.) Lab Data Attestation: I reviewed the patient's lab results. Labs: Laboratory Results - last 24 hr 10/08/22 10/08/22 07:00 07:00 Sodium 137 Potassium 3.8 Chloride 104 Carbon Dioxide 21.0 Anion Gap 12 BUN 8 Creatinine 0.67 L Estim Creat Clear Calc 109.45 Est GFR (MDRD) Af Amer 154 Est GFR (MDRD) Non-Af 127 BUN/Creatinine Ratio 11.9 Glucose 95 Calcium 8.5 Total Bilirubin 0.30 Direct Bilirubin 0.11 AST 28 ALT 19 Alkaline Phosphatase 112 Troponin I High Sens 8 Total Protein 7.3 Albumin 3.2 Globulin 4.1 Lipase 113 Ethyl Alcohol 53.0 Radiography Chest X-Ray - ED: 1 View, Read by ED Physician and Left Effusion (Large, with mediastinal shift) Diagnostic Testing: Clinical Impression(s) from Imaging Studies Chest CTA 10/08/22 06:57 IMPRESSION: CTA chest examination, without a demonstrated pulmonary embolism or arterial dissection. Worsening left lung consolidation and pleural effusion. Left upper lobe mass. Electronically Signed: Km Nogueira MD at 8:29 EST , Chest X-Ray 10/08/22 06:57 IMPRESSION: Worsening left lung consolidation and pleural effusion with shift of the mediastinum to the right. Electronically Signed: Km Nogueira MD at 8:23 EST , Chest X-Ray 10/08/22 10:51 IMPRESSION: Left lung infiltrate and effusion with improvement consistent with thoracentesis. No pneumothorax seen. Left upper lung mass. Electronically Signed: Km Nogueira MD at 12:24 EST , EKG Initial EKG: Attestation: I personally reviewed and interpreted this EKG as follows: Interpretation: Sinus Rhythm Comments: Normal sinus rhythm at a rate of 97 bpm Normal axis Nonspecific interventricular conduction delay Normal ST segments Compared to prior EKG on 09/17/2022, no acute changes Differential Diagnosis Chest pain/SOB: pulmonary embolism, ACS ACS: Positive for EKG without ischemia and history not suggestive of ischemia pain and pneumonia Reason(s) pneumonia less likely: Positive for no noted fever and symptoms not consistent with acute infection Differential Diagnosis: Malignant pleural effusion Procedures Other Procedures Procedure(s): Thoracentesis Area of fluid collection visualized with ultrasound. There is a significant pleural effusion on ultrasound. Area marked for procedure. Patient sitting up, leaning forward. Prepped and draped in normal sterile fashion. Is given 2 mg IV Versed for comfort. Is monitored on end-tidal CO2, continuous pulse oximetry and telemetry. At approximate level of T9 just below the scapula, area anesthetized with 1% lidocaine. Once adequate localized anesthesia obtained stab incision made and catheter placed with negative pressure. Once pleural fluid obtained catheter is advanced over the needle. 2 L of serosanguineous fluid obtained. Catheter then removed. Pressure dressing applied. Patient had some coughing during the procedure but tolerated well with no immediate complications. Postprocedure chest x-ray reviewed which shows improvement of pleural effusion and mediastinal shift. No obvious pneumothorax. Discharge Plan Dx/Rx/DC Orders Clinical Impression: Pleural effusion, Hypoxia, Lung mass Disposition Disposition: Acute Care [facility] Discharge Date/Time: 10/08/22 12:24
[2022-10-08 07:39] LABS: AST(SGOT) 28 U/L (15-37); Alanine Aminotransfer ALT/SGPT 19 U/L (16-61); Albumin, Serum 3.2 g/dL (3.2-5.0); Alkaline Phosphatase 112 U/L (45-117); Anion Gap 12 (5-15); BUN 8 mg/dL (7-18); BUN/Creat Ratio 11.9 RATIO (10-20); Bilirubin, Direct 0.11 mg/dL (0.00-0.30); Calcium,Total 8.5 mg/dL (8.5-10.1); Chloride 104 mmol/L (98-107); Creatinine, Serum 0.67 mg/dL (0.70-1.30); EST Glomerular Filtration Rate 127 mL/min (>60); Est Glom Filt Rate - Afr Amer 154 mL/min (>60); Estimated Creatinine Clearance 109.45 ml/min; Globulin 4.1 g/dL (2.2-4.2); Glucose 95 mg/dL (74-106); Lipase 113 U/L (73-393); Potassium 3.8 mmol/L (3.5-5.1); Protein, Total 7.3 g/dL (6.4-8.2); Sodium Level 137 mmol/L (136-145); Troponin-I HS 8 pg/mL (3.0-78.0)
[2022-10-08] MEDS: Morphine 4 MG/ML Syringe IV (08:13)
[2022-10-08] MEDS: Midazolam 2 MG/2 ML Syringe IV (10:29)
--- NOTE | 2022-10-08 10:51 | RAD_ITS ---
STUDY: X-RAY CHEST REASON FOR EXAM: Male, 62 years old. Thoracentesis, post procedure TECHNIQUE: Single AP portable view of the chest. COMPARISON: Earlier the same day. FINDINGS: There is left mid and lower lung airspace consolidation, with slight improvement. There is ill-defined left upper lung mass. There is large left pleural effusion, with improvement. The right lung is clear. Normal size heart. Normal mediastinum and teresa. Normal visualized pulmonary arteries. Normal visualized aortic arch and descending thoracic aorta. Normal visualized thoracic spine. Normal visualized ribs, clavicles, and shoulders. There is no demonstrated abnormality of the visualized soft tissue structures of the upper abdomen. RAD/Chest 1 View (Portable) IMPRESSION: Left lung infiltrate and effusion with improvement consistent with thoracentesis. No pneumothorax seen. Left upper lung mass. Electronically Signed: Km Nogueira MD at 12:24 EST ,
--- NOTE | 2022-10-08 10:52 | ED.RN ---
1035: dr. carrera at bedside to perform thoracentesis, 125/86, 97 hr, 99% 2l, ETCO2 44. 1038: 150/85, 95HR, 16RR, 100% 2LT. ETCO2 43. 1040: 139/80, 92 HR, 99% ETCO2 23, RR 23, 1048: 1L FLUID REMOVED, 124/29, 96HR, 20RR, 27RABR1 97%2L 1055:XRAY AT BEDSIDE.
--- NOTE | 2022-10-08 12:05 | PCM.HP.STD ---
HPI - General General Date of Admission: 10/08/22 HPI Narrative SHANTI MOLINA, is a 62 M who presents to the hospital mildly intoxicated with chest pain or shortness of breath. He was found to have a large left pleural effusion which is what he had about a month ago from a known lung cancer that he does not want any treatment for. About a month ago he had a thoracentesis that was about 3 L out over 2 different procedures and it was sent for cytology which did confirm adenocarcinoma. In the ER he had another 2 L out unfortunately he was still having shortness of breath and with ambulation was down to 88% on room air. 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 I discussed with him extensively today about end-of-life care and if you would like to proceed with hospice since he confirmed again that he did not want any treatment. He did request that conversation be had with his son as well however we could not get through at this time. [facility] Medical History Alcoholism Depression Home Medications NK 09/17/22 [History Last Taken Unknown] Allergy/AdvReac Type Severity Reaction Status Date / Time Penicillins Allergy Angioedema Verified 06/04/22 11:29 Family History Other Cancer Surgical History H/O foot surgery Social History Smoking Status: Current every day smoker tobacco type: cigarettes alcohol intake: current ROS Constitutional Constitutional: Denies chills, fatigue, fever(s) or malaise Eyes Eyes: Denies blurry vision ENT HEENT: Denies headache(s) or nasal discharge Cardiovascular Cardiovascular: Reports chest pain; Denies dyspnea on exertion or syncope Respiratory/Chest Respiratory/Chest: Reports cough and shortness of breath at rest; Denies shortness of breath with exertion Gastrointestinal Gastrointestinal: Denies constipation, diarrhea, nausea or vomiting Genitourinary Genitourinary: Denies dysuria Neurologic Neurologic: Denies focal weakness, numbness or tremor(s) Psychiatric Psychiatric: Denies anxiety or depression Vital Signs Vital Signs Vital Signs: 10/08/22 06:35 10/08/22 07:33 10/08/22 08:00 Temperature 97.8 F Temperature Source Oral Pulse Rate 101 H 103 H 108 H Respiratory Rate 17 16 16 Blood Pressure 136/95 H 144/78 H 146/64 H Blood Pressure Mean 108 100 91 Pulse Ox 94 94 97 Oxygen Delivery Method Room Air Room Air Room Air Oxygen Flow Rate (L/min) 10/08/22 09:00 10/08/22 10:51 10/08/22 11:20 Temperature Temperature Source Pulse Rate 96 81 89 Respiratory Rate 22 H 22 H 22 H Blood Pressure 140/76 H 147/70 H 149/85 H Blood Pressure Mean 97 95 106 Pulse Ox 98 97 96 Oxygen Delivery Method Room Air Nasal Cannula Nasal Cannula Oxygen Flow Rate (L/min) 2 2 10/08/22 12:02 Temperature 97.8 F Temperature Source Temporal Pulse Rate 86 Respiratory Rate 16 Blood Pressure 142/78 H Blood Pressure Mean 99 Pulse Ox 94 Oxygen Delivery Method Nasal Cannula Oxygen Flow Rate (L/min) 2 Weight Weight: 145 lb 8.081 oz Body Mass Index (BMI) 20.2 Physical Exam Narrative General: Sleepy but arousable, Oriented, Cooperative, No apparent distress, does appear intoxicated HEENT: Atraumatic, PERRLA, EOMI, Normocephalic Oral: Moist Mucosa Neck: Supple, No JVD Lungs: Diminished on left greater than right, Normal air movement, No rhonchi, No wheeze, No rales Cardiovascular: Regular rate, Regular Rhythm, Normal S1, Normal S2, No murmurs Abdomen: Soft, Non Tender, Non-Distended, No Hepato-splenomegaly Extremities: No edema, Capillary Refill Less than 3 Seconds Skin: No rashes, No breakdown Musculoskeletal: No Tenderness to Palpation of Joints or Extremities Neurological: Cranial nerves II-XII grossly intact, Motor Exam 5/5 strength throughout, Sensory exam intact to light touch and pain Psych/Mental Status: Flat affect Results Lab / Micro Data Result Diagrams: 10/08/22 07:00 Labs: Laboratory Results - last 24 hr 10/08/22 07:00: Sodium 137, Potassium 3.8, Chloride 104, Carbon Dioxide 21.0, Anion Gap 12, BUN 8, Creatinine 0.67 L, Estim Creat Clear Calc 109.45, Est GFR (MDRD) Af Amer 154, Est GFR (MDRD) Non-Af 127, BUN/Creatinine Ratio 11.9, Glucose 95, Calcium 8.5, Total Bilirubin 0.30, Direct Bilirubin 0.11, AST 28, ALT 19, Alkaline Phosphatase 112, Troponin I High Sens 8, Total Protein 7.3, Albumin 3.2, Globulin 4.1, Lipase 113 10/08/22 07:00: Ethyl Alcohol 53.0 Radiology Impression Chest CTA 10/08/22 06:57 IMPRESSION: CTA chest examination, without a demonstrated pulmonary embolism or arterial dissection. Worsening left lung consolidation and pleural effusion. Left upper lobe mass. Electronically Signed: Km Nogueira MD at 8:29 EST , Chest X-Ray 10/08/22 06:57 IMPRESSION: Worsening left lung consolidation and pleural effusion with shift of the mediastinum to the right. Electronically Signed: Km Nogueira MD at 8:23 EST , Assessment & Plan Assessment/Plan (1) Lung mass: (2) Pleural effusion: (3) Hypoxia: PLAN: Plan 1. Acute hypoxia secondary to a left malignant pleural effusion from lung cancer ? He had 2 L drained this morning in the ER but was still short of breath with ambulation in the 87 to 88% on room air ? We will evaluate for possible repeat thoracentesis tomorrow, I did discussed with him for 20 minutes about advance care planning for possible hospice as he does not have any intention of seeking treatment for his lung cancer. ? I did attempt to call the son without success but he would like his son to be in on the discussions though they have a bit of a strained relationship ? We will place him on SCDs pending possibility of a repeat thoracentesis tomorrow 2. Alcohol use disorder ? We will place on CIWA's with Ativan ? We will place him on oral thiamine as well as folic acid and a multivitamin DVT: SCDs Charges/Coding Visit Charges Inpatient E&M: 07093 Init Hosp L2 Procedures Hospitalists Procedures: 61863 Advncd Care Plan 30 Min
--- NOTE | 2022-10-08 13:51 | NURSING ---
attempted to reach son with phone number listed on demographics, just rings busy
[2022-10-08] MEDS: Folic Acid 1 MG Tablet PO (16:08)
[2022-10-09] VITALS (7 sets, daily range): BP systolic 115–138; BP diastolic 74–81; PULSE 79–92; RESP 15–18; TEMP 36.6–37.1; O2SAT 93–97
[2022-10-09 05:26] LABS: Absolute Neutrophil Count 5.6 X10^3/uL (2.0-7.7); Basophil# 0.12 X10^3/uL; Basophil% 1.3 % (0-1); Eosinophil# 0.46 X10^3/uL; Eosinophils% 4.9 % (0-5); Hematocrit 45.7 % (40-54); Hemoglobin 15.3 g/dL (13.0-16.5); Lymphocyte % 21.1 % (19-41); Mean Corp Hgb Conc 33.5 g/dL (32-36); Mean Corpuscular Hgb 31.4 pg (27.0-32.0); Mean Corpuscular Volume 93.6 fL (80-94); Mean Platelet Vol. 10.5 fl (6.2-12.0); Monocyte# 1.22 X10^3/uL; Monocyte% 12.9 % (0-10); NRBC Flagged by Analyzer 0 % (0-5); Neutrophil # 5.64 X10^3/uL (2.7-7.7); Neutrophil % 59.5 % (47-70); Platelet Count 315 K/mm3 (150-450); RBC Distribution Width CV 12.6 % (11.6-14.6); RBC Distribution Width SD 43.2 fl (35.1-43.9); Red Blood Count 4.88 M/mm3 (4.6-6.2); White Blood Count 9.5 K/mm3 (4.4-11.0)
[2022-10-09 06:02] LABS: Anion Gap 9 (5-15); BUN 9 mg/dL (7-18); BUN/Creat Ratio 14.6 RATIO (10-20); Calcium,Total 8.4 mg/dL (8.5-10.1); Chloride 102 mmol/L (98-107); Creatinine, Serum 0.62 mg/dL (0.70-1.30); EST Glomerular Filtration Rate 142 mL/min (>60); Est Glom Filt Rate - Afr Amer 171 mL/min (>60); Estimated Creatinine Clearance 116.67 ml/min; Glucose 90 mg/dL (74-106); Potassium 3.8 mmol/L (3.5-5.1); Sodium Level 138 mmol/L (136-145)
[2022-10-09] MEDS: Folic Acid 1 MG Tablet PO ×2 (07:41→17:27)
[2022-10-09] MEDS: Thiamine Hydrochloride 100 MG Tablet PO (07:41)
--- NOTE | 2022-10-09 08:01 | PCM.PN.HOSP ---
Reason for Visit Reason for Visit: Diagnoses Pleural effusion, not elsewhere classified (10/08/22) Hypoxemia (10/08/22) Other nonspecific abnormal finding of lung field (10/08/22) Subjective Subjective Follow-up for malignant effusion, stage IV adenocarcinoma of the lung. Objective Data Objective Data Vital Signs: Vital Signs Temp Pulse Resp BP Pulse Ox O2 Del Method O2 Flow Rate 97.9 F 80 18 126/74 H 96 Nasal Cannula 2 10/09/22 07:35 10/09/22 07:35 10/09/22 07:35 10/09/22 07:35 10/09/22 07:35 10/09/22 07:35 10/09/22 07:35 Oxygen Flow Rate (L/min) 2 Oxygen Delivery Method Nasal Cannula Weight: 143 lb 8.335 oz Body Mass Index (BMI) 20.0 Intake & Output: Intake and Output for Last 24 Hours 10/07/22 10/08/22 10/09/22 23:59 23:59 23:59 Intake Total 200 / 200 Output Total 500 / 500 Balance -300 / -300 Lab / Micro Data Result Diagrams: 10/09/22 04:35 10/09/22 04:35 Labs: Laboratory Results - last 24 hr 10/09/22 04:35: WBC 9.5, RBC 4.88, Hgb 15.3, Hct 45.7, MCV 93.6, MCH 31.4, MCHC 33.5, RDW Std Deviation 43.2, RDW Coeff of Kunal 12.6, Plt Count 315, MPV 10.5, Immature Gran % (Auto) 0.300, Neut % (Auto) 59.5, Lymph % (Auto) 21.1, Hettinger % (Auto) 12.9 H, Eos % (Auto) 4.9, Baso % (Auto) 1.3 H, Absolute Neuts (auto) 5.6, Absolute Lymphs (auto) 2.00, Nucleated RBC % 0 10/09/22 04:35: Sodium 138, Potassium 3.8, Chloride 102, Carbon Dioxide 27.0, Anion Gap 9, BUN 9, Creatinine 0.62 L, Estim Creat Clear Calc 116.67, Est GFR (MDRD) Af Amer 171, Est GFR (MDRD) Non-Af 142, BUN/Creatinine Ratio 14.6, Glucose 90, Calcium 8.4 L Radiography Diagnostic Testing: Radiology Impression Chest CTA 10/08/22 06:57 IMPRESSION: CTA chest examination, without a demonstrated pulmonary embolism or arterial dissection. Worsening left lung consolidation and pleural effusion. Left upper lobe mass. Electronically Signed: Km Nogueira MD at 8:29 EST Reading Location ID and State: [facility] / [place] , Service support , Chest X-Ray 10/08/22 06:57 IMPRESSION: Worsening left lung consolidation and pleural effusion with shift of the mediastinum to the right. Electronically Signed: Km Nogueira MD at 8:23 EST , Chest X-Ray 10/08/22 10:51 IMPRESSION: Left lung infiltrate and effusion with improvement consistent with thoracentesis. No pneumothorax seen. Left upper lung mass. Electronically Signed: Km Nogueira MD at 12:24 EST , Physical Exam Narrative Patient is short of breath at rest and lethargic in the morning. He wanted thoracocentesis tomorrow. Patient had thoracocentesis at the time of admission but again got refilled. Patient also complained of headache. Physical exam General: Alert, Oriented x3, Cooperative, moderate chronic malnutrition. HEENT: Atraumatic, PERRLA, EOMI, Normocephalic Oral: Oral mucosa dry. No Gingival or Mucosal Lesions/ Ulcerations Neck: Supple, No JVD, Negative Carotid Bruits Lungs: Air entry very diminished in the left lung, posterior to third. Large left pleural effusion. No crepitation/rhonchi, dyspnea at rest. Cardiovascular: Regular rate, Regular Rhythm, Normal S1, Normal S2, No murmurs Abdomen: Bowel Sounds Present, Soft, Non Tender, Non-Distended : No renal angle tenderness. No suprapubic tenderness. Extremities: No edema, Capillary Refill Less than 3 Seconds Skin: No rashes, No breakdown Musculoskeletal: No Tenderness to Palpation of Joints or Extremities detected. Muscle strength 4/5 at major joints. Neurological: Cranial nerves II-XII grossly intact, DTR 2+/4, lethargy. Psych/Mental Status: Flat affect, Assessment & Plan Assessment/Plan (1) Lung mass: (2) Pleural effusion: (3) Hypoxia: PLAN: Plan 62-year-old gentleman was admitted with large left pleural effusion for last 1 month with a known lung cancer which she does not want an definitive treatment. Patient had thoracocentesis about a month ago, 2 procedures before admission and cytology confirmed adenocarcinoma. 1. Acute hypoxia secondary to a left malignant pleural effusion from lung cancer/adenocarcinoma: ? He had 2 L drained on the day of admission but is still short of breath/dyspnea at rest. Pulse ox is 95% on room air. Patient wants thoracocentesis tomorrow therefore I talked to Dr. Yuen and is scheduled for early childhood education instructor tomorrow AM. Patient's son is in town. Discussed with family independence case manager and hospice care consult. 2. Chronic alcohol use disorder ? on CIWA's with Ativan. Patient gets easily frustrated. He has a headache and was given Tylenol but he states he has severe and wants oxycodone. He threatened to sign AMA if he does not get oxycodone. Patient was convinced that he might come back therefore he decided to stay now 3. Chronic moderate malnutrition: Patient has decreased muscle strength in lower extremity, moderate atrophy of muscle and loss of subcutaneous fat. DVT: SCDs Charges/Coding Visit Charges Inpatient E&M: 42910 Subs Hosp L2
--- NOTE | 2022-10-09 13:39 | CASEMGMT ---
Social Work RN CITLALY informed SW that MD Wahl stated referral to Hospice can be sent for pt. SW sent referral via fax. Informed that pt is having a thoracentesis tomorrow but that said Hospice assessment can be completed today or tomorrow. DEMETRI Moreland
[2022-10-09] MEDS: oxyCODONE 5 MG Tablet PO ×2 (14:31→21:30)
--- NOTE | 2022-10-09 14:45 | CHAPLAIN ---
Type of Pastoral Visit _x__ Initial Visit ___ Follow-up Visit ___ On-call Visit ___ General Patient Visit ___ Spiritual Assessment ___ Family Conference ___ Bereavement ___ Rapid Response ___ Code Blue ___ Other (describe below) Pastoral Care Referral From _x_ Patient ___ Family ___ Nurse ___ Physician ___ Clam Dredge Boat Captain ___ Tank Bottom Assembler ___ Other (describe below) Sacrament/Intervention _x__ Active listening ___ Anointing ___ Congregation ___ Bereavement ___ Communion ___ Kely exploration ___ ___ Life review ___ Prayer ___ Reconciliation ___ Sacrament of Sick _x__ Supportive presence ___ Wedding ___ Other (describe below) Pastoral Comments entering room the patient began complaining about his pain and that he was going to leave here if he didn't get some meds; sat at bedside to hear the patient's concerns and offer of support and prayers; pt stated don't waste your prayers on me; pt was asked about how he is coping with his diagnosis and pt states I have come to terms with it; pt repeats that helping him would mean getting pain relief; this reworker went to find nurse and report his statements; RN states that she is working on his pain concerns at that moment and will be soon in to see pt; returned to room and patient so that pt is informed of processs and pain is being addressed; pt is expressive of thanks
[2022-10-09] MEDS: Acetaminophen 500 MG Tablet 650 MG PO (21:30)
[2022-10-10] VITALS (7 sets, daily range): BP systolic 105–138; BP diastolic 57–93; PULSE 65–95; RESP 16–18; TEMP 36.6–36.8; O2SAT 92–98
[2022-10-10] MEDS: Acetaminophen 500 MG Tablet 650 MG PO (06:35)
[2022-10-10] MEDS: oxyCODONE 5 MG Tablet PO ×2 (06:36→11:04)
[2022-10-10] MEDS: Folic Acid 1 MG Tablet PO (08:17)
[2022-10-10] MEDS: Thiamine Hydrochloride 100 MG Tablet PO (08:18)
--- NOTE | 2022-10-10 08:30 | US_ITS ---
PROCEDURE: ULTRASOUND GUIDED THORACENTESIS. DATE: October 10, 2022. INDICATION: Male, 62 years old. Left pleural effusion. PHYSICIAN: Rd Hunt M.D. PROCEDURE: The risks, benefits, and alternatives to the procedure were explained to the patient. The specific risks of bleeding, infection, and pneumothorax requiring chest tube insertion were discussed and accepted. Written informed consent was obtained. Ultrasonographic evaluation of the left lower pleural space was carried out. An adequate pocket was identified. The patient was placed in the sitting, upright position. The overlying skin was prepped and draped in sterile fashion. 1% lidocaine was administered subcutaneously for local anesthesia. Under ultrasound guidance, a 5 Icelandic thoracentesis needle/catheter system was advanced into the left posterior lower pleural fluid collection. Approximately 1650 mL of blood tinge fluid was drained. The catheter was removed, and a sterile dressing was applied. The patient tolerated the procedure well. A chest x-ray was ordered. US/Thoracentesis W US IMPRESSION: Ultrasound-guided left thoracentesis. Electronically Signed: Rd Hunt MD at 12:39 EST ,
--- NOTE | 2022-10-10 08:50 | PN.HOSP_ITS ---
Reason for Visit Reason for Visit: Diagnoses Pleural effusion, not elsewhere classified (10/08/22) Hypoxemia (10/08/22) Other nonspecific abnormal finding of lung field (10/08/22) Objective Data Objective Data Vital Signs: Vital Signs Temp Pulse Resp BP Pulse Ox O2 Del Method O2 Flow Rate 97.9 F 86 16 118/75 94 Room Air 2 10/10/22 07:54 10/10/22 07:54 10/10/22 07:54 10/10/22 07:54 10/10/22 07:54 10/10/22 07:54 10/09/22 08:27 Oxygen Flow Rate (L/min) 2 Oxygen Delivery Method Room Air Weight: 143 lb 8.335 oz Body Mass Index (BMI) 20.0 Intake & Output: Intake and Output for Last 24 Hours 10/08/22 10/09/22 10/10/22 23:59 23:59 23:59 Intake Total 200 / 300 300 / 300 Output Total 500 / 725 225 / 225 Balance -300 / -425 75 / 75 Lab / Micro Data Result Diagrams: 10/09/22 04:35 10/09/22 04:35 Physical Exam Narrative Patient is short of breath at rest and lethargic in the morning. He wanted thoracocentesis tomorrow. Patient had thoracocentesis at the time of admission but again got refilled. Patient also complained of headache. Physical exam General: Alert, Oriented x3, Cooperative, moderate chronic malnutrition. HEENT: Atraumatic, PERRLA, EOMI, Normocephalic Oral: Oral mucosa dry. No Gingival or Mucosal Lesions/ Ulcerations Neck: Supple, No JVD, Negative Carotid Bruits Lungs: Air entry very diminished in the left lung, posterior to third. Large left pleural effusion. No crepitation/rhonchi, dyspnea at rest. Cardiovascular: Regular rate, Regular Rhythm, Normal S1, Normal S2, No murmurs Abdomen: Bowel Sounds Present, Soft, Non Tender, Non-Distended : No renal angle tenderness. No suprapubic tenderness. Extremities: No edema, Capillary Refill Less than 3 Seconds Skin: No rashes, No breakdown Musculoskeletal: No Tenderness to Palpation of Joints or Extremities detected. Muscle strength 4/5 at major joints. Neurological: Cranial nerves II-XII grossly intact, DTR 2+/4, lethargy. Psych/Mental Status: Flat affect, Assessment & Plan Assessment/Plan (1) Lung mass: (2) Pleural effusion: (3) Hypoxia: PLAN: Plan 62-year-old gentleman was admitted with large left pleural effusion for last 1 month with a known lung cancer which she does not want an definitive treatment. Patient had thoracocentesis about a month ago, 2 procedures before admission and cytology confirmed adenocarcinoma. 1. Acute hypoxia secondary to a left malignant pleural effusion from lung cancer/adenocarcinoma: ? He had 2 L drained on the day of admission but is still short of b reath/dyspnea at rest. Pulse ox is 95% on room air. Patient wants thoracocentesis tomorrow therefore I talked to Dr. Yuen and is scheduled for early childhood associate tomorrow AM. Patient's son is in town. Discussed with case management director and hospice care consult. 2. Chronic alcohol use disorder ? on CIWA's with Ativan. Patient gets easily frustrated. He has a headache and was given Tylenol but he states he has severe and wants oxycodone. He threatened to sign AMA if he does not get oxycodone. Patient was convinced that he might come back therefore he decided to stay now 3. Chronic moderate malnutrition: Patient has decreased muscle strength in lower extremity, moderate atrophy of muscle and loss of subcutaneous fat. DVT: SCDs
--- NOTE | 2022-10-10 11:01 | CASEMGMT ---
Social Work SW called Bing at [facility]osp[facility] to confirm that referral for pt had been received. Bing confirmed referral was received and an appointment is set for 2pm this day for pt and family to discuss options. Hospice SW will meet with pt and family at [facility] in pt room. DEMETRI Moreland
[2022-10-10] MEDS: Lidocaine 2% (20 ml mdv) 20 ML Vial (11:50)
--- NOTE | 2022-10-10 12:02 | RAD_ITS ---
STUDY: X-RAY CHEST REASON FOR EXAM: Male, 62 years old. Post thoracentesis TECHNIQUE: A PA inspiration and expiration views. COMPARISON: Comparison is made with prior study dated October 08, 2022. FINDINGS: The patient is status post left thoracentesis. No evidence of pneumothorax. RAD/Chest Insp/Exp 2 View IMPRESSION: No evidence of pneumothorax following left thoracentesis. Electronically Signed: Rd Hunt MD at 12:38 EST ,
[2022-10-10] MEDS: Acetaminophen 325 MG Tablet 650 MG PO (12:30)
--- NOTE | 2022-10-10 15:08 | CASEMGMT ---
Social Work Kiara from Hospice came to discuss services with pt. Stated pt son was also involved via phone. Pt declined to sign with Hospice at this time and told Kiara there are things I need to take care of before I make any decisions. Kiara informed that pt discussed changing housing as current residence is not conducive to someone with medical concerns like pt's. Kiara informed that a hospice packet was left with pt at the time of departure and pt and son were provided with contact number to reach Hospice if pt changes mind. DEMETRI Moreland
--- NOTE | 2022-10-10 16:08 | PCM.DC.SUM ---
Providers Date of Admission: 10/08/22 Date of Discharge: 10/10/22 Primary Care Physician: Dr. Rubia Coffey MD Consultations 10/09/22 14:52 Consult: Hospice / Palliative Care Routine Consulting Provider: [facility] Reason for Consult: lung ca EMERGENT Consult: No Notified: Yes Date Notified: 10/09/22 Time Notified: 14:52 Method of Notification: referral sent by Doreen BROWN 10/10/22 10:55 Consult: Oncology/Hematology Routine Consulting Provider: [facility] ([facility]) Reason for Consult: stage iv left lung adenocarcinoma, EMERGENT Consult: No Notified: Yes Date Notified: 10/10/22 Time Notified: 10:55 Method of Notification: Text Reason For Visit: MALIGNANT PLEURAL EFFUSION Diagnosis Discharge Diagnosis (1) Lung mass: Status: Chronic Code(s): R91.8 - Other nonspecific abnormal finding of lung field (2) Pleural effusion: Status: Acute Code(s): J90 - Pleural effusion, not elsewhere classified (3) Hypoxia: Status: Acute Code(s): R09.02 - Hypoxemia Plan 62-year-old gentleman was admitted with large left pleural effusion for last 1 month with a known lung cancer which she does not want an definitive treatment.? Patient had thoracocentesis about a month ago, 2 procedures before admission and cytology confirmed adenocarcinoma. 1.? Acute hypoxia secondary to a left malignant pleural effusion from lung cancer/adenocarcinoma: ? He had 2 L drained on the day of admission but is still short of breath/dyspnea at rest.? Pulse ox is 95% on room air. Patient wants thoracocentesis tomorrow therefore I talked to Dr. Yuen and is scheduled for machine programmer tomorrow AM.? Patient's son is in town.? Discussed with caseworker and hospice care consult. 10/10: Patient had thoracocentesis today. Blood-tinged fluid. Post thoracocentesis chest x-ray does not show pneumothorax. I called oncologyBianca for consult. She was coming to see the patient but before that patient signed AMA. Charge nurse and I tried to convince the patient to stay but patient signed AMA. 2.? Chronic alcohol use disorder ? on CIWA's with Ativan.? Patient gets easily frustrated.? He has a headache and was given Tylenol but he states he has severe and wants oxycodone.? He threatened to sign AMA if he does not get oxycodone.? Patient was convinced that he might come back therefore he decided to stay now 3.? Chronic moderate malnutrition: Patient has decreased muscle strength in lower extremity, moderate atrophy of muscle and loss of subcutaneous fat. DVT: SCDs Medications at Discharge Home Medications NK 09/17/22 Physical Exam Narrative Seen and examined. Shortness of breath on baseline. Patient looks more awake. Patient had thoracocentesis today, 650 mL was drained. It was blood-tinged fluid. Physical exam General: Alert, Oriented x3, Cooperative, moderate chronic malnutrition. HEENT: Atraumatic, PERRLA, EOMI, Normocephalic Oral: Oral mucosa dry. No Gingival or Mucosal Lesions/ Ulcerations Neck: Supple, No JVD, Negative Carotid Bruits Lungs: Air entry very diminished in the left lung, posterior to third. Large left pleural effusion. No crepitation/rhonchi, dyspnea at rest. Cardiovascular: Regular rate, Regular Rhythm, Normal S1, Normal S2, No murmurs Abdomen: Bowel Sounds Present, Soft, Non Tender, Non-Distended : No renal angle tenderness. No suprapubic tenderness. Extremities: No edema, Capillary Refill Less than 3 Seconds Skin: No rashes, No breakdown Musculoskeletal: No Tenderness to Palpation of Joints or Extremities detected. Muscle strength 4/5 at major joints. Neurological: Cranial nerves II-XII grossly intact, DTR 2+/4, lethargy. Psych/Mental Status: Flat affect, Weight / BMI Weight Weight: 143 lb 8.335 oz Body Mass Index (BMI) 20.0 ABG / Lab / Microbiology Data Result Diagrams: 10/09/22 04:35 10/09/22 04:35 Radiography Diagnostic Testing: Radiology Impression Thoracentesis Ultrasound 10/10/22 08:30 IMPRESSION: Ultrasound-guided left thoracentesis. Electronically Signed: Rd Hunt MD at 12:39 EST , Chest X-Ray 10/10/22 12:02 IMPRESSION: No evidence of pneumothorax following left thoracentesis. Electronically Signed: Rd Hunt MD at 12:38 EST , Meaningful Use Info Meaningful Use Diagnoses (Choose all that apply): None applicable Discharge Plan Admission Admit Date/Time: 10/08/22 12:05 Attending Provider: Hernando Wahl Primary Care Provider: Rubia Coffey Consulting Providers: Miguel A Guevara ; Ro Rendon ; Evaristo Her ; Natalia Ram ; Sheree Le ; Jesica Pepper [employer] ; Evaristo Novak ; Juventino Varner ; David Glover ; Milton Sargent ; Edward Howell ; Levy Harrison ; Gaston Kay ; Bianca Stewart [employer] Instructions Patient Instructions: ELLEN RN Thoracentesis Dc Discharge Orders/Prescriptions Prescriptions: No Action NK Referrals / Follow Up: Rubia Coffey MD [Primary Care Provider] - Disposition Disposition (needs filled in before D/C Order can be placed): Against Medical Advice Charges/Coding Visit Charges Inpatient E&M: 38052 Disch Hosp >30min
== END 2022-10-10 15:03 | disposition left against medical advice (07) ==
LOC: ED 08:21 → MS3 12:14
PROVIDERS: Admitting Provider Family Medicine; Emergency Provider Emergency Medicine; PCP Internal Medicine; Visit Provider Internal Medicine
DX: J90 Pleural effusion, not elsewhere classified (principal); E44.0 Moderate protein-calorie malnutrition; F10.20 Alcohol dependence, uncomplicated; F17.210 Nicotine dependence, cigarettes, uncomplicated; R09.02 Hypoxemia; I10 Essential (primary) hypertension; Y90.2 Blood alcohol level of 40-59 mg/100 ml; Z68.20 Body mass index [BMI] 20.0-20.9, adult
CPT/HCPCS: 32555; 36415; 71045; 71046; 71275; 80048; 80076; 82077; 83690; 84484; 85025; 90471; 93005; 94668; 96374; 96375; 99221; 99285; Q9967; A4216; G0378